=== PATIENT | male | born 1975 | race Caucasian/White ===

== ENCOUNTER 2025-08-06 13:33 | Outpatient (AMB) | payer MEDICARE, MEDICAID, SELFPAY ==
--- NOTE | 2025-08-06 13:37 | A.OFFVIS_ITS ---
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 The pain began approximately a year ago and has progressively worsened, significantly impacting his ability to walk and perform daily activities. The pain radiates from the lower back to the left buttock and is exacerbated by movement, standing, and walking. The patient also reports neuropathy, which he has been experiencing for 15 to 20 years, associated with his diabetes mellitus. The neuropathy causes numbness and a sensation angelic to being stabbed in the feet, particularly when attempting to sleep. He has tried various medications, including gabapentin and methadone, but these have not provided significant relief. The patient has a chronic foot wound, which has been under treatment with wound care specialists. The wound has delayed healing, necessitating regular visits to a wound care clinic and home visits by a nurse. The patient is unable to p articipate in physical therapy due to the wound, which has impacted his mobility and pain management options. The patient has a history of hypertension, with a recent episode of elevated blood pressure and pulse, which was managed in the hospital with Dilaudid. He is currently prescribed Tramadol for pain management, although he reports receiving a lower dose than prescribed. - Onset: Approximately one year ago - Quality: Radiating pain from lower back to left buttock - Exacerbating factors: Movement, standing, walking - Relieving factors: Sitting, leaning against a wall - Interference: Affects walking, standing, cooking, and bathroom activities - Affect: Pain significantly impacts daily activities and sleep, causing distress. - Analgesia: Currently using Tramadol, previously tried gabapentin and methadone without significant relief. - Adverse Effects: Tramadol at current dose reduces sharp pain but not pressure; gabapentin and methadone caused undesirable side effects. - Activities of Daily Living: Pain limits ability to walk, stand, cook, and perform other daily tasks. - Aberrant Drug Related Behaviors: None reported. 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 - Neurological: Reports neuropathy with numbness and stabbing sensation in feet. - Endocrine: Reports diabetes mellitus. - Cardiovascular: Reports hypertension, recent episode of elevated blood pressure. - Integumentary: Reports chronic foot wound. Physical Exam Exam Exam: General: awake, alert, oriented. Answers questions appropriately. Fully engaged in examination. Skin: warm, dry, intact. wounf right foot, dressing in place from wound care. HEENT: Normocephalic. Hearing intact. Cardiac: External chest normal in appearance. Respiratory: No cough, audible wheezing or stridor. Abdomen: without gross distension. MS: No obvious swelling or deformities. Able to transition from sit to stand unassisted. Ambulates with bilaterally normal heel strike and toe off Left SI: Thigh thrust, compression, Gaenslen tests positive. Tender to palpation over left PSIS. Neurological: Oriented to person, place, time and situation. Thought process intact. No gait abnormalities appreciated. Psychiatric: Appropriate mood and affect. Good judgment and insight. Vital Signs: Last Vital Signs Pulse 116 H 08/06/25 13:38 Resp 16 08/06/25 13:38 BP 184/92 H 08/06/25 13:38 Pulse Ox 97 08/06/25 13:38 Oxygen Delivery Method Room Air 08/06/25 13:38 BMI result Body Mass Index 30.7 Assessment & Plan Assessment & Plan (1) Sacroiliac joint dysfunction of left side: Code(s): M53.3 - Sacrococcygeal disorders, not elsewhere classified Category: Medical (2) Degenerative disc disease, lumbar: Code(s): M51.36 - Other intervertebral disc degeneration, lumbar region Category: Medical (3) Chronic pain syndrome: Code(s): G89.4 - Chronic pain syndrome Category: Medical Plan The plan for managing the patient's chronic lower back pain includes attempting to obtain an MRI to better understand the underlying cause, although insurance approval may be challenging due to the lack of prior physical therapy. Unable to attend PT d/t wound on right foot. The patient is advised to continue with Tramadol at the prescribed dose of 50 mg three times a day, predscribed by pcp. Once the foot wound is healed, the patient may be eligible for sacroiliac joint injections to alleviate pain, as well as potential use of Qutenza patches for neuropathy management. For the neuropathy, if Qutenza is ineffective, a spinal cord stimulator may be considered as a subsequent option. The patient is encouraged to continue wound care management and follow up with the ultrasound applications specialist to ensure healing progresses. Patient was informed and verbally consented to the use of an ambient scribe for clinic note documentation during this visit. Orders: Orders XR lumbar spine 4V min Today M51.36 - Other intervertebral disc degeneration, lumbar region MR lumbar spine wo con Today G89.4 - Chronic pain syndrome, M51.36 - Other intervertebral disc degeneration, lumbar region, M53.3 - Sacrococcygeal disorders, not elsewhere classified Patient Instructions: - Continue taking Tramadol as prescribed by pcp. - Follow up with ultrasound applications specialist regularly. - Schedule an MRI once insurance approval is obtained. - Consider sacroiliac joint injections and Qutenza patches after wound healing. - Monitor blood pressure and report any significant changes. Coding Level of Care Code New Pt Level 4 (05159) Complex EM visit Add On G2211 Diagnoses Sacroiliac joint dysfunction of left side M53.3 Degenerative disc disease, lumbar M51.36 Chronic pain syndrome G89.4
[2025-08-06 13:38] VITALS: BP 184/92; PULSE 116; RESP 16; O2SAT 97; BMI 30.7
--- OUTSIDE RECORDS SUMMARY | 2025-08-06 16:51 | XMS_ITS | Encounter Summary ---
Author Organization [facility] Address [address] [place] [address] Care Team Providers Care Rag Sorter Name Role Phone John Kumar MD Primary Care Provider [phone] Reason for Visit * Reason Onset Date Comments VNA 07/20/2025 Encounter Details Date Type Department Care Team ([facility] st Contact Info) Description 07/20/2025 Telephone Adult Medicine [facility] [address] [place], [place] [phone] Michael Kinney, CHILDREN'S LITERATURE PROFESSOR [address] [place], [place] Social History Tobacco Use Types Packs/Day Years Used Date Smoking Tobacco: Former Cigarettes 0 Q uit: 09/24/1996 Smokeless Tobacco: Never Alcohol Use Standard Drinks/Week Comments No 0 (1 standard drink = 0.6 oz pur e alcohol) Food Risk Answer Date Recorded Within the past 12 months we worried whether our food would run out before we got money to buy more. Never true 02/05/2025 Within the past 12 months th e food we bought just didn't last and we didn't have money to get more. Never true 02/05/2025 Interpersonal Safety Answer Date Record ed Physical Abuse Unrecognized value 02/10/2025 Verbal Abuse Unrecognized value 02/10/2025 Sex and Gender Information Value Date Recorded Sex Assigned at Not on file Legal Sex Male 6:54 AM EST Gender Identity Not on file Sexual Orientation Not on file documented as of this encounter Functional Status * Are you deaf or do you have serious difficulty hearing? Answer Date of Assessment Author No 06/10/2025 1:42 PM EDT Jane Duckworth RN * Are you blind or do you have serious difficulty seeing, even when wearing glasses? Answer Date of Assessment Author No 06/10/2025 1:42 PM EDT Jane Duckworth RN * Do you have serious difficulty walking or climbing stairs? Answer Date of Assessment Author No 06/10/2025 1:42 PM EDT Jane Duckworth RN * Do you have serious difficulty dressing or bathing? Answer Date of Assessment Author No 06/10/2025 1:42 PM EDT Jane Duckworth RN * Because of a physical, mental, or emotional condition, do you have serious difficulty doing errandsalone such as visiting the doctor? Answer Date of Assessment Author No 06/10/2025 1:42 PM EDT Jane Duckworth RN documented as of this encounter Mental Status * Because of a physical, mental, or emotional condition, do you have serious difficulty concentrating, remembering, or making decisions? (5 years old or older) Answer Entry Date Author No 06/10/2025 1:42 PM EDT Jane Duckworth RN documented in this encounter Progress Notes * Shirley Hall RN - 07/21/2025 11:24 AM EDT Call to [facility]NA Left message for ying to call triage * Shirley Hall RN - 07/20/2025 2:19 PM EDT Call to nurse Left message for ying to call triage Pt is post op foot ulceration . Last seen by dr camarena 07/15 has ortho visit tomorrow was seen by dejuan kinney 07/15 for neck pain, 2 week rx for tramadol sent has f/u 08/26 * Shalonda Preston - 07/20/2025 2:14 PM EDT VNA CALL Which [facility] office is calling? [facility] Full name of caller: [facility] office is calling. The patient's nurse Ying is asking for a callback , high priority The caller is Intake calling for Ying Is the caller at the patients home?: no, unsure if nurse is with the patient Reason for call: Wants to speak to Nohemi Kinney regarding medication Does caller need an urgent call back? yes Was CONTACT Telephone # obtained above?: yes, Fax #: documented in this encounter Plan of Treatment Upcoming Encounters Date Type Department Care Team (Late st Contact Info) Description 08/10/2025 10:30 AM EST Office Visit Orthopedic Surgery - [place] [id number] [phone] Jeremy Camarena, DPM [address] [phone] 08/26/2025 8:45 AM EST Office Visit Adult Medicine [address] [phone] Michael Kinney NP [address] [place], [place] documented as of this encounter Visit Diagnoses Not on filedocumented in this encounter Additional Health Concerns Infection Onset Date Last Indicated Resolved Time Human Metapneumovirus 02/09/2025 02/09/2025 documented as of this encounter Care Teams Rag Sorter Relationship Specialty Start Date End Date John Kumar MD [address] [place] [address] PCP - General Internal Medicine 09/27/24 documented as of this encounter
--- OUTSIDE RECORDS SUMMARY | 2025-08-06 16:51 | XMS_ITS | Encounter Summary ---
Author Organization [facility] Address [address] [place] [address] Care Team Providers Care System Specialist Name Role Phone John Kumar MD Primary Care Provider [phone] Reason for Visit * Reason Onset Date Comments faxed vna order 07/13/2025 [facility] 1592 Encounter Details Date Type Department Care Team ([facility] st Contact Info) Description 07/13/2025 Telephone Adult Medicine [facility] [address] [place] [phone] John Kumar MD [address] [place] [address] Social History Tobacco Use Types Packs/Day Years [...] documented in this encounter Progress Notes * Nguyen Vasquez - 07/13/2025 1:56 PM EDT Faxed order received from [facility] 1597 please sign and fax to [phone]. documented in this encounter Plan of Treatment Upcoming Encounters Date Type Department Care Team (Late st Contact Info) Description 08/10/2025 10:30 AM EST Office Visit Orthopedic Surgery - [place] [address] [phone] Jeremy Camarena, DPAlyssa 175 [facility] [address] [place] [address] 08/26/2025 8:45 AM EST Office Visit [address] [phone] Michael Kinney NP [address] [place], [place] documented as of this encounter Visit Diagnoses Not on filedocumented in this encounter Additional Health Concerns Infection Onset Date Last Indicated Resolved Time Human Metapneumovirus 02/09/2025 02/09/2025 documented as of this encounter Care Teams System Specialist Relationship Specialty Start Date End Date John Kumar MD [address] [place], [place] PCP - General Internal Medicine 09/27/24 documented as of this encounter
--- OUTSIDE RECORDS SUMMARY | 2025-08-06 16:51 | XMS_ITS | Clinical Summary ---
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 200 each 3 11/03/19 25 026 Active insulin glargine (LANTUS SoloStar) 100 unit/mL (3 mL) injection pen Inject 8 Units under the skin at bedtime. 5 mL 1 02/06/20 25 Active amLODIPine (NORVASC) 10 mg tablet Take 1 tablet (10 mg total) by mouth 1 (one) time each day. 30 each 5 02/19/20 25 025 Active ibuprofen (ADVIL,MOTRIN) 600 mg tablet Take 1 tablet (600 mg total) by mouth 3 (three) times a day if needed for mild pain (pain). 60 tablet 1 04/01/20 25 Active diclofenac (Voltaren Arthritis Pain) 1 % topical gel Apply 2 g topically 4 (four) times a day. 150 g 1 05/26/20 25 Active lisinopril (PRINIVIL,ZESTR IL) 40 mg tablet Take 1 tablet (40 mg total) by mouth 1 (one) time each day. 30 each 5 06/15/20 25 026 Active metoprolol succinate (TOPROL-XL) 25 mg 24 hr tablet Take 2 tablets (50 mg total) by mouth 1 (one) time each day. 180 tablet 1 07/15/20 25 Active traMADoL (ULTRAM) 50 mg tabletIndicatio ns:Acute left-sided low back pain without sciatica,Uncont rolled hypertension Take 0.5 tablets (25 mg total) by mouth 3 (three) times a day if needed for moderate pain. Max Daily Amount: 75 mg 45 tablet 07/22/20 25 Active metoprolol succinate (TOPROL-XL) 25 mg 24 hr tablet TAKE ONE TABLET BY MOUTH EVERY DAY 30 tablet 5 03/12/20 25 025 Discontinued(Re order) metoprolol succinate (TOPROL-XL) 25 mg 24 hr tablet Take 2 tablets (50 mg total) by mouth 1 (one) time each day. 30 tablet 5 07/15/20 25 025 Discontinued traMADoL (ULTRAM) 50 mg tabletIndicatio ns:Acute left-sided low back pain without sciatica,Uncont rolled hypertension Take 1 tablet (50 mg total) by mouth 3 (three) times a day if needed for moderate pain. Max Daily Amount: 150 mg 45 tablet 07/15/20 25 025 Discontinued(Re order) Active Problems Problem Noted Date Diagnosed Date Diabetic foot infection ([facility] V24, [facility] V2 8) 01/28/2025 Acute osteomyelitis of right foot ([facility] V24, [facility] V28) 09/27/2024 Assessment & Plan (02/18/2025 11:17 AM EDT): Orders: XR Chest 2 Views; Future Acute osteomyelitis ([facility] V24, [facility] V28) 0 10/18/2018 Overview (10/07/2024): 10/08/18 Right MPJ Foot biopsy- acute & chronic osteo Assessment & Plan (10/10/2024 10:23 PM EST): Orders: Basic metabolic panel; Future DM (diabetes mellitus), type 2 with renal complications ([facility] V24, [facility] V28) 08/12/2018 Assessment & Plan (02/18/2025 11:17 AM EDT): Orders: POC glucose manually resulted Microalbuminuria 08/12/2018 Chronic osteomyelitis ([facility] V24, [facility] V28) 08/09/2018 Overview (10/07/2024): 10/08/18 Right Lateral Foot biopsy Diabetic foot ulcers ([facility] V24, [facility] V28) 08/09/2018 Overview (10/07/2024): Right foot, 09/26/18 s/p debridement: R Medial Foot Wound: 1.3 x1.5x 0.2 cm's; 09/26/18 s/p debridement R Lateral Foot Wound 0.9 x 0.5 x 0.4 cm's Polyneuropathy 08/09/2018 Essential hypertension 06/22/2017 Assessment & Plan (02/18/2025 11:17 AM EDT): Assessment & Plan (12/03/2024 5:04 PM EDT): His blood pressure is much elevated today. He is in a fair amount of pain from hitting his lower back on the counter during a fall a little over a week ago. This is likely contributory given previous normal readings. That being said, pt was asked to follow up in 3 weeks for recheck and potential medication adjustment. Orders: Microalbumin creatinine urine ratio; Future Hemoglobin A1c; Future Assessment & Plan (10/10/2024 10:23 PM EST): DM (diabetes mellitus), type 2 with neurological complications ([facility] V24, [facility] V28) 05/18/2017 Assessment & Plan (12/03/2024 5:04 PM EDT): Based on his fasting blood sugars there has been some improvement in his blood sugar control. Most of his fasting blood sugars are in the low 100s, sometimes will have a fasting blood sugar in the 140s but this is seldom. He is tolerating 5 units of Lantus well, which is actually his preferred treatment. He was not tolerating the previously prescribed glipizide and metformin. He has upcoming consultation with endocrine I appreciate their input. A1c and urine microalbumin has been ordered. Orders: Microalbumin creatinine urine ratio; Future Hemoglobin A1c; Future Assessment & Plan (10/10/2024 10:23 PM EST): Orders: Ambulatory referral to Endocrinology; Future DM (diabetes mellitus), type 2 with peripheral vascular complications ([facility] V24, [facility] V28) 05/18/2017 Resolved Problems Problem Noted Date Diagnosed Date Resolved Date Pneumonia of right lung due to infectious organism, unspecified part of lung 02/09/202502/13 Encounters Date Type Department Care Team Description 08/03/2025 Telephone Adult Medicine [address] [phone] John Kumar MD 07/30/2025 3:15 PM EST Office Visit Orthopedic [address] [phone] Jeremy Camarena DPM Controlled type 2 diabetes mellitus with diabetic polyneuropathy, without long-term current use of insulin ([facility] V24, [facility] V28) (Primary Dx); Charcot's joint of foot, right; Ulcer of right heel, with fat layer exposed ([facility] V24, [facility] V28) 07/21/2025 10:30 AM EDT Office Visit Orthopedic [address] [phone] Garth Nelson MD Finger pain, left (Primary Dx) 07/20/2025 Telephone Adult Medicine [address] [phone] Michael Kinney NP 07/16/2025 9:45 AM EDT Office Visit Orthopedic [address] [phone] Jeremy Camarena DPM Controlled type 2 diabetes mellitus with diabetic polyneuropathy, without long-term current use of insulin (CMS/HCC V24, CMS/HCC V28) (Primary Dx); Charcot's joint of foot, right; Ulcer of right heel, with fat layer exposed ([facility] V24, CMS/HCC V28) 07/15/2025 8:45 AM EDT Office Visit Adult [address] [phone] Michael Kinney, JENNY Acute left-sided low back pain without sciatica (Primary Dx); Uncontrolled hypertension 07/15/2025 Telephone Adult Medicine [address] [phone] John Kumar MD 07/13/[address] [phone] John Kumar MD 07/06/2025 9:45 AM EDT Office Visit Orthopedic [place] [phone] [phone] Jeremy Camarena, DPM Controlled type 2 diabetes mellitus with diabetic polyneuropathy, without long-term current use of insulin ([facility] V24, [facility] V28) (Primary Dx); Charcot's joint of foot, right; Ulcer of right heel, with fat layer exposed ([facility] V24, [facility] V28) 07/02/2025 Telephone Adult [address] [phone] John Kumar MD 06/30/2025 9:00 AM EDT Office Visit Orthopedic [facility] [address] [phone] Oscar Vences PA Other sprain of left ring finger, initial encounter (Primary Dx) 06/30/2025 Telephone Orthopedic [facility] [address] [phone] Angélica Solares 06/24/2025 2:30 PM EDT Office Visit Orthopedic [facility] [address] [phone] Jeremy Camarena DPM Controlled type 2 diabetes mellitus with diabetic polyneuropathy, without long-term current use of insulin ([facility] V24, [facility] V28) (Primary Dx); Charcot's joint of foot, right; Ulcer of right heel, with fat layer exposed ([facility] V24, [facility] V28) 06/15/2025 11:00 AM EDT Office Visit Adult Medicine [address] [phone] Michael Kinney NP Neck pain (Primary Dx); Acute left-sided low back pain without sciatica; Uncontrolled hypertension; DM (diabetes mellitus), type 2 with neurological complications ([facility] V24, [facility] V28); Diabetic ulcer of right midfoot associated with type 2 diabetes mellitus, unspecified ulcer stage ([facility] V24, [facility] V28); Encounter for examination following treatment at hospital; Encounter for screening for malignant neoplasm of prostate 06/10/2025 1:26 PM EDT - 06/10/2025 9:35 PM EDT Emergency [facility] Emergency [address] [place] [phone] Gabino Blevins MD Neck pain on left side (Primary Dx); Upper back pain Discharge Disposition: Home or Self Care 06/10/2025 Telephone Adult Medicine [address] [phone] John Kumar MD 06/02/2025 2:49 PM EDT - 06/02/2025 11:59 PM EDT Hospital Encounter [facility] MRI [address] [place] [phone] Other sprain of left ring finger, initial encounter Discharge Disposition: Home or Self Care 06/01/2025 10:45 AM EDT Office Visit Orthopedic Surgery [facility] [address] [phone] Jeremy Camarena DPM Controlled type 2 diabetes mellitus with diabetic polyneuropathy, without long-term current use of insulin ([facility] V24, [facility] V28) (Primary Dx); Charcot's joint of foot, right; Cellulitis of right ankle; Ulcer of right heel, with fat layer exposed ([facility] V24, [facility] V28) 05/26/2025 8:00 AM EDT Consult Orthopedic Surgery [place] [phone] [phone] Oscar Vences PA Other sprain of left ring finger, initial encounter (Primary Dx); Acquired trigger finger of left ring finger 05/14/2025 9:15 AM EDT Office Visit Orthopedic Surgery [facility] [address] [phone] Jeremy Camarena, OBI Controlled type 2 diabetes mellitus with diabetic polyneuropathy, without long-term current use of insulin ([facility] V24, [facility] V28) (Primary Dx); Charcot's joint of foot, right; Neuropathy; Ulcer of right heel, with fat layer exposed ([facility] V24, [facility] V28) from Last 3 Months Immunizations Immunization Administration Dates Next Due Influenza Quadravalent, MDCK , 0.5ml, preservative free (Flucelvax) 6mo and older 07/07/2022,07/07/2022 [employer] SARS-CoV-2 COVID -19, vector-nr, rS-Ad26, preservative free 02/01/2021,02/01/2021 Surgical History Surgery Date Site/Laterality Comments CHOLECYSTECTOMY 04/17/2017 PROCEDURE: HISTORICAL CHOLECYSTECTOMY HERNIA REPAIR 04/17/2017 PROCEDURE: HISTORICAL HERNIA REPAIR/UMB OTHER SURGICAL HISTORY 04/14/2017 Right PROCEDURE: FL DEBRIDEMENT BONE 1ST 20 SQ CM/< Medical History Medical History Date Comments History of osteomyelitis 08/09/2018 DX:Hist ory of osteomyelitis; COMMENT: 04/09 medial side R foot, diabetic wet gangrene, tissue loss extensive from prox porttion R great toe medially down to ankle,plantar fascia,several tendons & muscles were necotic,debridement 13 x 7 x 2 cms; 6 weeks IV antibiotics DM (diabetes mellitus), type 2 with peripheral vascular complications ([facility] V24, [facility] V28) 05/18/2017 DX:DM (diabetes mellitus), type 2 with peripheral vascular complications (HCC) DM (diabetes mellitus), type 2 with neurological complications ([facility] V24, [facility] V28) 05/18/2017 DX:DM (diabetes mellitus), t ype 2 with neurological complications (HCC) Polyneuropathy 08/09/2018 DX:Polyneuropath y Essential hypertension 06/22/2017 DX:Essent ial hypertension History of DVT (deep vein thrombosis) 05/18/2017 DX:History of DVT (deep vein thrombosis); COMMENT: 2016 Left leg Microalbuminuria 08/12/2018 DX:Microalbumin uria DM (diabetes mellitus), type 2 with renal complications ([facility] V24, [facility] V28) 08/12/2018 DX:DM (diabetes mellitus), t ype 2 with renal complications (HCC) Acute osteomyelitis ([facility] V24, [facility] V28) 10/18/2018 DX:Acute osteomyelitis (HCC) ; COMMENT: 10/08/18 Right MPJ Foot biopsy- acute & chronic osteo Chronic osteomyelitis ([facility] V24, [facility] V28) 08/09/2018 DX:Chronic osteomyelitis (HC C); COMMENT: 10/08/18 Right Lateral Foot biopsy Diabetic foot ulcers ([facility] V24, [facility] V28) 08/09/2018 DX:Diabetic foot ulcers (HCC ); COMMENT: Right foot, 09/26/18 s/p debridement: R Medial Foot Wound: 1.3 x1.5x 0.2 cm's; 09/26/18 s/p debridement R Lateral Foot Wound 0.9 x 0.5 x 0.4 cm's Family History Medical History Relation Name Comments Diabetes Father Relation Name Status Comments Father Social History Tobacco Use Types Packs/Day Years [...] on file Sexual Orientation Not on file Obstetrics History Last Filed Vital Signs Vital Sign Reading Time Taken Comments Blood Pressure 168/90 07/15/2025 9:22 AM EDT Pulse 119 07/15/2025 9:00 AM EDT 5 minute average Temperature 36.2 C (97.2 F) 07/15/2025 8:50 AM EDT Respiratory Rate 16 06/15/2025 11:1 2 AM EDT Oxygen Saturation 98% 07/15/2025 8:5 0 AM EDT Inhaled Oxygen Concentration - - Weight 105 kg (231 lb) 07/15/2025 8:50 AM EDT Height 180.3 cm (5' 11 ) 07/15/2025 8:5 0 AM EDT Body Mass Index 32.22 07/15/2025 8:50 AM EDT Plan of Treatment Upcoming Encounters Date Type Department Care Team (Late st Contact Info) Description 08/10/2025 10:30 AM EST Office Visit Orthopedic Surgery [place] [address] [phone] Jeremy Camarena, DPAlyssa [address] [address] 08/26/2025 8:45 AM EST Office Visit Adult Medicine [facility] [address] [place], [place] [phone] Michael Kinney NP [address], [place] Health Maintenance Due Date Last Done Comments Diabetes: Annual Retina Eye Exam 1983 DTaP,Tdap,and Td Vaccines (1 - Tdap) 01/12/1992 Hepatitis B Vaccines (1 of 3 - 19+ 3-dose series) 01/12/1992 Pneumococcal Vaccine: 50+ Years (1 of 2 - PCV) 01/12/1992 HIV Screening 09/02/2022 Hepatitis C Screening 09/02/2022 Medicare Annual Wellness Visit 09/02/2022 RSV Immunization Adult Patients (1 - Risk 50-74 years 1-dose series) 2023 Zoster Vaccines (1 of 2) 2023 Diabetes: Annual Urine Albumin-Creatinine Ratio (uACR) 05/30/2024 05/30/2023 Depression Screening 09/24/2024 COVID-19 Vaccine ( season) 2025 07/21/2021, 02/01/2021, 02/01/2021 Influenza Vaccine (#1) 2025 07/07/2022, 2021 Diabetes: Blood Sugar Control Test (HGBA1C) 08/04/2025 02/01/2025, 09/27/2024, 05/28/2024 Diabetes: Annual Foot Exam 01/28/202601/28, 09/27/2024, 05/28/2024 Colorectal Cancer Screening: Stool Based Tests (FOBT/FIT) 02/03/2026 02/03/2025 Social Influencers of Health Screening 02/05/2026 02/05/2025 Diabetes: Annual GFR (Glomerular Filtration Rate) 06/10/2026 06/10/2025, 02/13/2025, 02/12/2025, Additional history exists Hypertension/CHF/CAD Annual BMP Blood Test 06/10/2026 06/10/2025, 02/13/2025, 02/12/2025, Additional history exists Cholesterol Screening (Lipid Panel) 05/28/2029 05/28/2024, 05/28/2024 HIB Vaccines Aged Out No longer eligi ble based on patient's age to complete this topic HPV Vaccines Aged Out No longer eligi ble based on patient's age to complete this topic Hepatitis A Vaccines Aged Out No long er eligible based on patient's age to complete this topic IPV Vaccines Aged Out No longer eligi ble based on patient's age to complete this topic MMR Vaccines Aged Out No longer eligi ble based on patient's age to complete this topic Meningococcal ACWY Vaccine Aged Out N o longer eligible based on patient's age to complete this topic Meningococcal B Vaccine Aged Out No l onger eligible based on patient's age to complete this topic RSV Immunization Patients Under 20 months Aged Out No longer eligible based on patient's age to complete this topic Varicella Vaccines Aged Out No longer eligible based on patient's age to complete this topic Procedures Procedure Name Priority Date/Time Associated Diagnosis Comments XR FINGERS 2+ VIEWS LEFT Routine 07/21/2025 10:59 AM EDT Finger pain, left ECG ANNOTATED 06/11/2025 CT ANGIO CHEST WO AND/OR W CONTRAST STAT 06/10/2025 7:13 PM EDT Neck pain on left side ECG 12-LEAD STAT 06/10/2025 2:12 PM EDT D-DIMER STAT 06/10/2025 1:48 PM EDT TROPONIN I HIGH SENSITIVITY STAT 06/10/2025 1:47 PM EDT CBC WITH AUTO DIFFERENTIAL STAT 06/10/2025 1:47 PM EDT MAGNESIUM STAT 06/10/2025 1:47 PM EDT COMPREHENSIVE METABOLIC PANEL STAT 06/10/2025 1:47 PM EDT CBC AND DIFFERENTIAL STAT 06/10/2025 1:47 PM EDT MR FINGER WO CONTRAST LEFT Routine 06/02/2025 3:38 PM EDT Other sprain of left ring finger, initial encounter FL INJECTION SINGLE TENDON SHEATH OR LIGAMENT APONEUROSIS Routine 05/26/2025 8:00 AM EDT Acquired trigger finger of left ring finger OCCULT BLOOD STOOL, GUAIAC Routine 02/03/2025 4:51 PM EDT HEMOGLOBIN A1C Add-On 02/01/2025 6:21 AM EDT LIPID PANEL Routine 05/28/2024 DIABETES FOOT EXAM Routine 05/28/2024 URINE ALBUMIN CREATININE RATIO Routine 05/30/2023 from Last 3 Months or Most Recently Relevant to Health Maintenance Results * XR Fingers 2+ Views Left (07/21/2025 10:59 AM EDT) Anatomical Region Laterality Modality Upper Extremities, Fingers Left Compu osiris Radiography Narrative 07/21/2025 8:14 PM EDT Three-view x-rays of the left ring finger show no evidence of acute fracture or dislocation. There are degenerative changes at the PIP joint with narrowing of the joint space. Mild soft tissue swelling surrounding the PIP joint. No significant interval changes from radiographs obtained 04/01/2025 Impression: Degenerative changes at the PIP joint with soft tissue swelling. Garth Nelson MD IMG XR PROCEDURES Final Result * ECG-Annotated (06/11/2025) Provider Onbase ECG ORDERABLES Final Result * CT Angio Chest wo and/or w Contrast (06/10/2025 7:13 PM EDT) Anatomical Region Laterality Modality Body Computed Tomogra phy 06/10/2025 7:38 PM EDT Impressions 06/10/2025 7:38 PM EDT 1. No pulmonary embolus. This document has been electronically signed by: Chance Cee MD on 06/10/2025 19:38:00 Narrative 06/10/2025 7:38 PM EDT INDICATION: PE suspected, low/intermediate prob, positive D-dimer CT angiography chest with contrast. 3D Postprocessing. Comparison: CT - CT ANGIO CHEST WO AND OR W CONTRAST - 01/28/2025 02:49 AM EDT Findings: The heart size is normal. RV/LV ratio is normal. Unremarkable thoracic aorta and great vessels. No aneurysm. No acute pulmonary embolus. The visualized thyroid and mediastinum are unremarkable. The lungs are clear. The visualized upper abdomen is unremarkable. The bones are intact. Procedure Note Chance Cee MD - 06/10/2025 INDICATION: PE suspected, low/intermediate prob, positive D-dimer CT angiography chest with contrast. 3D Postprocessing. Comparison: CT - CT ANGIO CHEST WO AND OR W CONTRAST - 01/28/2025 02:49AM EDT Findings: The heart size is normal. RV/LV ratio is normal. Unremarkable thoracic aorta and great vessels. No aneurysm. No acute pulmonary embolus. The visualized thyroid and mediastinum are unremarkable. The lungs are clear. The visualized upper abdomen is unremarkable. The bones are intact. IMPRESSION: 1. No pulmonary embolus. This document has been electronically signed by: Chance Cee MD on 06/10/2025 19:38:00 Gabino Blevins MD IMG CT PROCEDURES Final Result * ECG 12 lead (06/10/2025 2:12 PM EDT) Ventricular Rate ECG 115 BPM GEMUSE Atrial Rate 115 BPM GEMUSE P-R Interval 140 ms GEMUSE QRS Duration 80 ms GEMUSE Q-T Interval 334 ms GEMUSE QTc 462 ms GEMUSE P Wave [place] 38 degrees GEMUSE R [place] 19 degrees GEMUSE T [place] 39 degrees GEMUSE ECG Interpretation Sinus tachycardia Otherwise normal ECG When compared with ECG of 09-FEB-2025 14:49, No significant change was found Confirmed by MD JAQUAN, MIGUEL ([id number]) on 06/10/2025 5:35:28 PM GEMUSE 06/10/2025 2:12 PM EDT 06/10/2025 5:35 PM EDT Gabino Blevins MD ECG ORDERABLES Final Re sult GEMUSE * (ABNORMAL) D-dimer, quantitative (06/10/2025 1:48 PM EDT) D-Dimer, Quant (D-DU) 397(H) <=230 ng/mL DDU LAB COAGULATION METHOD 06/10/2025 2:55 PM EDT [facility] Blood Venous blood specimen / Unknown Venipuncture / Unknown 06/10/2025 1:48 PM EDT 06/10/2025 2:38 PM EDT [facility] - 06/10/2025 2:55 PM EDT D-Dimer <230 ng/mL (D-Dimer units) is the threshold for exclusion of DVT/PE. D-Dimer may be elevated in: Critically ill, severely infected, trauma patients, DIC, acute CVA, acute OH, unstable angina, AF, old age, , and smoking. D-Dimer may be decreased with: Initiation of heparin therapy and oral anticoagulants. us Gabino Blevins MD LAB BLOOD ORDERABLES Fin al Result Performing Organization Address [facility] de Phone Number [facility] [address] [place] [address], [place] [phone] * Troponin I high sensitivity (06/10/2025 1:47 PM EDT) [facility] High Sensitivity Troponin I 12 <=79 ng/L LAB CHEMISTRY METHOD 06/10/2025 3:10 PM EDT [facility] Blood Venous blood specimen / Unknown Venipuncture / Unknown 06/10/2025 1:47 PM EDT 06/10/2025 2:38 PM EDT [facility] - 06/10/2025 3:10 PM EDT High levels of biotin in samples may falsely decrease hsTroponin values. Use caution when interpreting hsTroponin results in patients taking biotin who exhibit renal impairment (eGFR <60) or in patients taking more than 20 mg/day of biotin. us Gabino Blevins MD LAB BLOOD ORDERABLES Fin al Result Performing Organization Address [facility] de Phone Number [facility] [address] [place] [address], [place] [phone] * (ABNORMAL) CBC auto differential (06/10/2025 1:47 PM EDT) [facility] WBC 6.8 4.8 - 10.8 K/mcL LAB HEMETOLOGY METHOD 06/10/2025 3:25 PM EDT [facility] RBC 3.70(L) 4.50 - 5.50 M/mcL LAB HEMETOLOGY METHOD 06/10/2025 3:25 PM EDT [facility] Hemoglobin 12.9(L) 13.5 - 17.5 g/dL LAB HEMETOLOGY METHOD 06/10/2025 3:25 PM EDT [facility] Hematocrit 34.5(L) 42.0 - 54.0 % LAB HEMETOLOGY METHOD 06/10/2025 3:25 PM EDT [facility] MCV 92.5 79.0 - 98.0 FL LAB HEMETOLOGY METHOD 06/10/2025 3:25 PM EDT [facility] MCH 34.6(H) 27.0 - 32.0 pcg LAB HEMETOLOGY METHOD 06/10/2025 3:25 PM EDT [facility] MCHC 37.4(H) 32.0 - 37.0 g/dL LAB HEMETOLOGY METHOD 06/10/2025 3:25 PM EDT [facility] RDW 14.4 11.0 - 15.0 % LAB HEMETOLOGY METHOD 06/10/2025 3:25 PM EDT [facility] Platelets 181 130 - 400 K/mcL LAB HEMETOLOGY METHOD 06/10/2025 3:25 PM EDT [facility] MPV 9.3 7.0 - 11.0 FL LAB HEMETOLOGY METHOD 06/10/2025 3:25 PM EDT [facility] NRBC 0.0 <1.0 % LAB HEMETOLOGY METHOD 06/10/2025 3:25 PM EDT [facility] NRBC Absolute 0.00 <0.10 K/mcL LAB HEMETOLOGY METHOD 06/10/2025 3:25 PM EDT [facility] Neutrophils Relative 80.5 % LAB HEMETOLOGY METHOD 06/10/2025 3:25 PM EDT [facility] Lymphocytes Relative 11.1 % LAB HEMETOLOGY METHOD 06/10/2025 3:25 PM EDT [facility] Monocytes Relative 7.1 % LAB HEMETOLOGY METHOD 06/10/2025 3:25 PM EDT [facility] Eosinophils Relative 0.3 % LAB HEMETOLOGY METHOD 06/10/2025 3:25 PM EDT [facility] Basophils Relative 0.6 % LAB HEMETOLOGY METHOD 06/10/2025 3:25 PM EDT [facility] Immature Granulocytes Relative 0.4 % LAB HEMETOLOGY METHOD 06/10/2025 3:25 PM EDT [facility] Neutrophils Absolute 5.45 1.50 - 7.00 K/mcL LAB HEMETOLOGY METHOD 06/10/2025 3:25 PM EDT [facility] Lymphocytes Absolute 0.75(L) 1.00 - 5.00 K/mcL LAB HEMETOLOGY METHOD 06/10/2025 3:25 PM EDT [facility] Monocytes Absolute 0.48 0.20 - 1.00 K/mcL LAB HEMETOLOGY METHOD 06/10/2025 3:25 PM EDT [facility] Eosinophils Absolute 0.02 0.00 - 0.50 K/mcL LAB HEMETOLOGY METHOD 06/10/2025 3:25 PM EDT [facility] Basophils Absolute 0.04 0.00 - 0.20 K/mcL LAB HEMETOLOGY METHOD 06/10/2025 3:25 PM EDT [facility] Immature Granulocytes Absolute 0.03 0.00 - 0.03 K/mcL LAB HEMETOLOGY METHOD 06/10/2025 3:25 PM EDT [facility] Blood Venous blood specimen / Unknown Venipuncture / Unknown 06/10/2025 1:47 PM EDT 06/10/2025 2:38 PM EDT us Gabino Blevins MD LAB BLOOD ORDERABLES Fin al Result Performing Organization Address [facility]/ZIP Co de Phone Number [facility] [address] [place] [address], [place] [phone] * Magnesium (06/10/2025 1:47 PM EDT) [facility] Magnesium 2.1 1.9 - 2.6 mg/dL LAB CHEMISTRY METHOD 06/10/2025 3:05 PM EDT [facility] Blood Venous blood specimen / Unknown Venipuncture / Unknown 06/10/2025 1:47 PM EDT 06/10/2025 2:38 PM EDT us Gabino Blevins MD LAB BLOOD ORDERABLES Fin al Result Performing Organization Address [facility]/ZIP Co de Phone Number [facility] [address] [place] [address], [place] [phone] * (ABNORMAL) Comprehensive metabolic panel (06/10/2025 1:47 PM EDT) [facility] Sodium 137 133 - 145 mmol/L LAB CHEMISTRY METHOD 06/10/2025 3:42 PM EDT [facility] Potassium 4.7 3.5 - 5.5 mmol/L LAB CHEMISTRY METHOD 06/10/2025 3:42 PM EDT [facility] Chloride 100 96 - 110 mmol/L LAB CHEMISTRY METHOD 06/10/2025 3:42 PM EDT [facility] CO2 25 21 - 32 mmol/L LAB CHEMISTRY METHOD 06/10/2025 3:42 PM EDT [facility] Anion Gap 12(H) 3 - 11 LAB CHEMISTRY METHOD 06/10/2025 3:42 PM [facility] Glucose 164(H) 70 - 100 mg/dL LAB CHEMISTRY METHOD 06/10/2025 3:42 PM [facility] BUN 29(H) 5 - 25 mg/dL LAB CHEMISTRY METHOD 06/10/2025 3:42 PM [facility] Creatinine 1.19 0.70 - 1.30 mg/dL LAB CHEMISTRY METHOD 06/10/2025 3:42 PM [facility] eGFR 73 >=60 mL/min/1. 73m2 LAB CHEMISTRY METHOD 06/10/2025 3:42 PM [facility] Comment:Calculation based on the Chronic Kidney Disease Epidemiology Collaboration (CKD-EPI) equation refit without adjustment for race. BUN/Creatinine Ratio 24.4 LAB CHEMISTRY METHOD 06/10/2025 3:42 PM [facility] Calcium 9.1 8.5 - 10.5 mg/dL LAB CHEMISTRY METHOD 06/10/2025 3:42 PM [facility] AST (SGOT) 65(H) 10 - 42 unit/L LAB CHEMISTRY METHOD 06/10/2025 3:42 PM [facility] Comment:Results verified by repeat testing ALT (SGPT) 81(H) 10 - 60 unit/L LAB CHEMISTRY METHOD 06/10/2025 3:42 PM [facility] Comment:Results verified by repeat testing Alkaline Phosphatase 76 42 - 121 unit/L LAB CHEMISTRY METHOD 06/10/2025 3:42 PM [facility] Total Protein 7.3 6.0 - 8.0 g/dL LAB CHEMISTRY METHOD 06/10/2025 3:42 PM [facility] Albumin 3.4 3.2 - 5.0 g/dL LAB CHEMISTRY METHOD 06/10/2025 3:42 PM [facility] Total Bilirubin 3.0(H) 0.0 - 1.4 mg/dL LAB CHEMISTRY METHOD 06/10/2025 3:42 PM EDT [facility] Blood Venous blood specimen / Unknown Venipuncture / Unknown 06/10/2025 1:47 PM EDT 06/10/2025 2:38 PM EDT us Gabino Blevins MD LAB BLOOD ORDERABLES Fin al Result [facility] [address] [place] [address], [place] [phone] * MR Finger wo Contrast Left (06/02/2025 3:38 PM EDT) Anatomical Region Laterality Modality Upper Extremities, Hand Left Magnetic Resonance 06/03/2025 3:28 AM EDT Impressions 06/03/2025 11:26 AM EDT Abnormal bone marrow signal involving the base of the middle phalanx of the left middle finger with overlying bone marrow edema which extends to the proximal phalanx with surrounding subcutaneous soft tissue edema and left fourth PIP joint fluid. Findings are nonspecific and may represent postinflammatory or postinfectious etiology. Underlying septic arthritis/osteomyelitis is not excluded.. -------- FINAL REPORT -------- Dictated By: Joyce Molina Dictated Date: 06/03/2025 03:28 ET Assigned Physician: Joyce Molina Reviewed and Electronically Signed By: Joyce Molina Signed Date: 06/03/2025 11:26 ET Workstation ID: [id number] Transcribed By: Self Edit Transcribed Date: 06/03/2025 03:34 ET Narrative 06/03/2025 11:26 AM EDT INDICATION: left ring finger persistent pain and stiffness PIP joint COMPARISON: None TECHNIQUE: Multiplanar, multisequence MRI was performed of the left ring finger without intravenous contrast administration. FINDINGS: Focal area of T1 hypointense signal (series 6, image 11) with cortical irregularity involving the base of the middle phalanx of the middle finger (series 3, image 11) with corresponding hyperintense signal on T2 fat-sat. There is subjacent bone marrow edema of the left middle finger proximal phalanx (series 7, image 11). There is an associated joint effusion at this level with overlying subcutaneous soft tissue swelling. No overlying ulcer is identified. There are increased tubular T2 fat-sat hyperintense foci within the subcutaneous soft tissues of the left hand which may represent pacinian corpuscle hyperplasia. No acute fracture or dislocation. Cystic change along the third metacarpal head. Procedure Note Joyce Molina MD - 06/03/2025 INDICATION: left ring finger persistent pain and stiffness PIP joint COMPARISON: None TECHNIQUE: Multiplanar, multisequence MRI was performed of the left ringfinger without intravenous contrast administration. FINDINGS: Focal area of T1 hypointense signal (series 6, image 11) with corticalirregularity involving the base of the middle phalanx of the middle finger(series 3, image 11) with corresponding hyperintense signal on T2 fat-sat.There is subjacent bone marrow edema of the left middle finger proximalphalanx (series 7, image 11). There is an associated joint effusion atthis level with overlying subcutaneous soft tissue swelling. No overlying ulcer is identified. There are increased tubular T2 fat-sat hyperintense foci within thesubcutaneous soft tissues of the left hand which may represent paciniancorpuscle hyperplasia. No acute fracture or dislocation. Cystic change along the third metacarpal head. IMPRESSION: Abnormal bone marrow signal involving the base of the middle phalanx ofthe left middle finger with overlying bone marrow edema which extends tothe proximal phalanx with surrounding subcutaneous soft tissue edema andleft fourth PIP joint fluid. Findings are nonspecific and may representpostinflammatory or postinfectious etiology. Underlying septicarthritis/osteomyelitis is not excluded.. -------- FINAL REPORT -------- Dictated By: Joyce Molina Dictated Date: 06/03/2025 03:28 ET Assigned Physician: Joyce Molina Reviewed and Electronically Signed By: Joyce Molina Signed Date: 06/03/2025 11:26 ET Workstation ID: [id number] Transcribed By: Self Edit Transcribed Date: 06/03/2025 03:34 ET Oscar MORIN IMG MRI PROCEDURES Final Result * FL INJECTION SINGLE TENDON SHEATH OR LIGAMENT APONEUROSIS (05/26/2025 8:00 AM EDT) Narrative Oscar Vences PA - 05/26/2025 8:00 AM EDT MIKEL Calvillo 05/27/2025 8:21 AM Hand / UE Inj/Asp: L ring A1 for trigger finger Indications: pain Details: 27 G needle, volar approach Medications: 40 mg triamcinolone acetonide 40 mg/mL Outcome: tolerated well, no immediate complications Site was prepped in standard fashion using alcohol swab, sterile technique was used to perform the injection, the patient tolerated the procedure well and a band-aid dressing was applied Informed Consent: Laterality: Left Relevant images/test results available and reviewed: yes Health status cleared: Yes Procedure/treatment, purpose, treatment alternatives, risks/potential complications and benefits explained: yes Risk/complications/benefits details: Risk/complications/benefits details: Risks and benefits of corticosteroid injection were discussed, including risk of pain, bleeding, infection, tissue attenuation, tendon rupture, changes in skin color, and injury to surrounding structures such as arteries, veins and nerves. We also discussed the patient may develop worsening pain for a few days before having improvement in their symptoms. Patient questions answered: yes Patient agrees, verbalizes understanding, and wants to proceed: yes Consent given by: Patient Informed consent discussion completed by Physician/GISSELL with patient: Verbal Pre-procedure timeout performed: yes Oscar MORIN IN CLINIC/BEDSIDE ORDERABLES Fi nal Result * Occult blood stool, guaiac (02/03/2025 4:51 PM EDT) Occult Blood, Stool #1 Negative Negative 02/03/2025 5:56 PM EDT [facility] Stool Rectum structure / Unknown Non-blood Collection / Unknown 02/03/2025 4:51 PM EDT 02/03/2025 5:14 PM EDT Carolin MORIN LAB BODY FLUIDS AND STOOLS ORDERABLES Final Result [facility] [address] [place] [address], * (ABNORMAL) Hemoglobin A1c (02/01/2025 6:21 AM EDT) [facility] Hemoglobin A1C 6.8(H) <6.5 % LAB CHEMISTRY METHOD 02/02/2025 10:17 PM EDT [facility] Mean Bld Glu Estim. 148 mg/dL LAB CHEMISTRY METHOD 02/02/2025 10:17 PM EDT [facility] Blood Venous blood specimen / Unknown Venipuncture / Unknown 02/01/2025 6:21 AM EDT 02/01/2025 7:43 AM EDT Carolin MORIN LAB BLOOD ORDERABLES Final Result Performing Organization Address [facility] Co de Phone Number [facility] [address] [place] [address], * Diabetes Foot Exam (05/28/2024) [facility] Diabetes: Annual Foot Exam abstracted Historical Provider HEALTH MAINTENANCE Final Result * (ABNORMAL) Lipid panel (05/28/2024) [facility] LDL/HDL Ratio 3 0 - 4 Triglycerides 243(A) 0 - 150 mg/dL Cholesterol 168 0 - 200 mg/dL HDL 52 >=40 mg/dL LDL Cholesterol 68 0 - 100 mg/dL Blood Venous blood specimen / Unknown Historical Provider LAB BLOOD ORDERABLES Ce l Result * Urine Albumin Creatinine Ratio (05/30/2023) [facility] Urine Albumin Creatinine Ratio abstracted Historical Provider HEALTH MAINTENANCE Final Result from Last 3 Months or Most Recently Relevant to Health Maintenance Additional Health Concerns Infection Onset Date Last Indicated Human Metapneumovirus 02/09/2025 02/09/2025 Insurance [place]ICA[place] - [place] MEDICARE Advance Directives Documents on File Type Date Recorded 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 Do not modify or discontinue any currently active code status orders. * Full Code - Default Date Activated Date Inactivated Comments 01/28/2025 7:31 AM 02/05/2025 5:57 PM This is order is used when code status has not been discussed with the patient, or code status is otherwise unknown/unconfirmed To update the patient's code status, place a code status order. Do not modify or discontinue any currently active code status orders. * Full Code - Default Date Activated Date Inactivated Comments 09/27/2024 6:36 AM 10/02/2024 6:59 PM This is order is used when code status has not been discussed with the patient, or code status is otherwise unknown/unconfirmed To update the patient's code status, place a code status order. Do not modify or discontinue any currently active code status orders. Healthcare Agents on File Name Relationship Healthcare Agent [facility] Communication Jacqui Mackenzie Spouse Health Care Agent Care Teams Bucket Operator Relationship Specialty Start Date End Date John Kumar MD [address] [place] [address] PCP - General Internal Medicine 09/27/24
--- OUTSIDE RECORDS SUMMARY | 2025-08-06 16:51 | XMS_ITS ---
Author Organization [facility] Care Team Providers Care Prekindergarten Teacher Name Role Phone Camryn Doan Unavailable Unavailable Loretta De Jesus Unavailable Unavailable Jonathan Robin Unavailable Unavailable Myranda Mauro Unavailable Unavailable Maribel Clark Unavailable Unavailable Allergies and adverse reactions Code CodeSystem Substance Reaction Severity StartDate Concern Status 6808 RXNORM Metformin Unknown Unknown active Care Team Name Role Address Phone Organization Dates Jonathan Robin PCP [address] [facility] [address], [place], [address], [facility] (Office): [facility] 04/20/2017 - 05/10/2017 Camrynprerna Doan [address] [place] [address], [address], [facility] (Office): [facility] 04/20/2017 - 05/10/2017 Loretta De Jesus [address], [address], [facility] (Office): [facility] 04/20/2017 - 05/10/2017 Myranda Mauro [address], [address], [facility] (Office): [facility] 04/20/2017 - 05/10/2017 Maribel Clark [address], [address], [place] (Office): [facility] 04/20/2017 - 05/10/2017 Mental Status Section Date Assessment Total Score Description 05/10/2017 BIMS 15 cognitively int act CAM 0 No delirium ind icated PHQ-9 02 minimal depress ion 05/04/2017 BIMS 15 cognitively int act CAM 0 No delirium ind icated PHQ-9 02 minimal depress ion Insurance Providers Problems Problem # Description Date of onset Resolved Date Code CodeSystem Concern Status 1 ACUTE CHOLECYSTITIS 04/20/[address] active 2 CELLULITIS OF RIGHT LOWER LIMB 04/20/[address] active 3 DIFFICULTY IN WALKING, NOT ELSEWHERE CLASSIFIED 04/20/[address] active 4 OTHER ACUTE OSTEOMYELITIS, RIGHT ANKLE AND FOOT 04/20/[address] active 5 OTHER LACK OF COORDINATION 04/20/[address] active Reason for Referral No Reasons for Referral Entered Social History Social History Observation Description Start Date End Date Code Code System Current Smoking Status Tobacco smoking consumption unknown 771976418 SNOMED CT Sex Assigned At Male 1975 04777-7 [facility] Gender Identity Sexual Orientation Vital Signs Code Code System Vitals Name Values and Units Timing Information 9279-1 [facility] Respiratory Rate Value=18.0 Units=/m in 05/10/2017 8462-4 [facility] Blood Pressure-Diastolic Value=60 Un its=mmHg 05/10/2017 8480-6 [facility] Blood Pressure-Systolic Cyfbf=064 Un its=mmHg 05/10/2017 8867-4 [facility] Heart rate Value=70.0 Units=/min 14055-0 [facility] O2 % dC Oximetry Value=96.0 Units= % 05/10/2017 2339-0 [facility] Blood Sugar Rkhio=021.0 Units=mg/dL 05/09/2017 09117-1 [facility] Pain Level Value=0.0 05/09/2017 8310-5 [facility] Body Temperature Value=97.6 Units= F 05/09/2017 83137-1 [facility] Weight Basjy=614.0 Units=Lbs 8302-2 [facility] Height Value=71.0 Units=Inches 04/25/2017
--- OUTSIDE RECORDS SUMMARY | 2025-08-06 16:51 | XMS_ITS | Encounter Summary ---
Author Organization [facility] Address [address] [place] [address] Care Team Providers Care Community Recreation Programmer Name Role Phone John Kumar MD Primary Care Provider [phone] Reason for Visit * Reason Onset Date Comments Request For Order(s) 07/02/2025 Encounter Details Date Type Department Care Team ([facility] st Contact Info) Description 07/02/2025 Telephone Adult Medicine [facility] [address] [place] [phone] John Kumar MD [address] [place], [place] [phone] Social History Tobacco Use Types Packs/Day Years [...] documented in this encounter Progress Notes * Vivienne Barlow - 07/02/2025 3:13 PM EDT [facility] faxing order for Stacy Goodman, to [phone] documented in this encounter Plan of Treatment Upcoming Encounters Date Type Department Care Team (Late st Contact Info) Description 08/10/2025 10:30 AM EST Office Visit Orthopedic Surgery - [place] [address] [phone] Jeremy Camarena, OBI [address] [address] 08/26/2025 8:45 AM EST Office Visit Adult [address] [phone] Michael Kinney NP [address] [place], [place] documented as of this encounter Visit Diagnoses Not on filedocumented in this encounter Additional Health Concerns Infection Onset Date Last Indicated Resolved Time Human Metapneumovirus 02/09/2025 02/09/2025 documented as of this encounter Care Teams Community Recreation Programmer Relationship Specialty Start Date End Date John Kumar MD [address] [place] [address] PCP - General Internal Medicine 09/27/24 documented as of this encounter
--- OUTSIDE RECORDS SUMMARY | 2025-08-06 16:51 | XMS_ITS | Encounter Summary ---
Author Organization [facility] Address [address] [place] [address] Care Team Providers Care Asset Recovery Specialist Name Role Phone John Kumar MD Primary Care Provider [phone] Reason for Visit * Reason Onset Date Comments faxed vna order 08/03/2025 [facility] Encounter Details Date Type Department Care Team ([facility] st Contact Info) Description 08/03/2025 Telephone Adult Medicine [facility] [address] [place] [phone] John Kumar MD [address] [place] [address] Social History Tobacco Use Types Packs/Day Years [...] of Assessment Author No 06/10/2025 1:42 PM BRITTANYT Jane Duckworth RN documented as of this encounter Mental Status * Because of a physical, mental, or emotional condition, do you have serious difficulty concentrating, remembering, or making decisions? (5 years old or older) Answer Entry Date Author No 06/10/2025 1:42 PM Jane Carver RN documented in this encounter Progress Notes * Nguyen Vasquez - 08/03/2025 10:06 AM EST Faxed order received from [employer] 2015 please sign and fax to [phone]. documented in this encounter Plan of Treatment Upcoming Encounters Date Type Department Care Team (Late st Contact Info) Description 08/10/2025 10:30 AM EST Office Visit Orthopedic Surgery - [place] [address] [phone] Jeremy Camarena, OBI [address] [address] 08/26/2025 8:45 AM EST Office Visit [address] [phone] Michael Kinney MEMBERSHIP COUNSELOR [address] [place], [place] documented as of this encounter Visit Diagnoses Not on filedocumented in this encounter Additional Health Concerns Infection Onset Date Last Indicated Resolved Time Human Metapneumovirus 02/09/2025 02/09/2025 documented as of this encounter Care Teams Asset Recovery Specialist Relationship Specialty Start Date End Date John Kumar MD [address] [place], [place] PCP - General Internal Medicine 09/27/24 documented as of this encounter
== END 2025-08-06 14:07 | disposition home or self-care (01) ==
PROVIDERS: PCP Internal Medicine; Visit Provider Registered Nurse Emergency
DX: M53.3 Sacrococcygeal disorders, not elsewhere classified (principal); M51.369 Other intervertebral disc degeneration, lumbar region without mention of lumbar back pain or lower extremity pain; G89.4 Chronic pain syndrome
CPT/HCPCS: 99204; G2211

== ENCOUNTER → 2025-08-06 13:33 | Outpatient (BNVA) | payer MEDICARE, MEDICAID, SELFPAY | PROVIDERS: PCP Internal Medicine; Visit Provider Registered Nurse Emergency | DX: M54.2 Cervicalgia (principal); M53.3 Sacrococcygeal disorders, not elsewhere classified; G89.4 Chronic pain syndrome; E11.65 Type 2 diabetes mellitus with hyperglycemia; E11.42 Type 2 diabetes mellitus with diabetic polyneuropathy; Z79.4 Long term (current) use of insulin; I10 Essential (primary) hypertension; E11.69 Type 2 diabetes mellitus with other specified complication; M86.571 Other chronic hematogenous osteomyelitis, right ankle and foot | CPT/HCPCS: 99202 ==

== ENCOUNTER 2025-08-11 14:44 | Outpatient (REF) | payer MEDICARE, MEDICAID, SELFPAY ==
--- OUTSIDE RECORDS SUMMARY | 2025-08-10 10:30 | XMS_ITS | Encounter Summary ---
Author Organization [employer] Address [address] [place] [address] Care Team Providers Care Bone Char Operator Name Role Phone John Kumar MD Primary Care Provider [phone] Reason for Visit * Reason Comments DM Foot Care DM (diabetes mellitu s), type 2 with neurological complications (CMS/HCC)Surgical wound dehiscence, initial encounterUlcer of midfoot, right, with necrosis of muscle (CMS/[facility])Cellulitis of right ankleNon-pressure chronic ulcer of rig Encounter Details Date Type Department Care Team (Late st Contact Info) Description 08/10/2025 10:30 AM EST Office Visit Orthopedic Surgery - [place] [address] [phone] Jeremy Camarena, DPM [address] [address] Controlled type 2 diabetes mellitus with diabetic polyneuropathy, without long-term current use of insulin (CMS/HCC V24, CMS/HCC V28) (Primary Dx); Charcot's joint of foot, right; Ulcer of right heel, with fat layer exposed (CMS/HCC V24, CMS/HCC V28) Social History Tobacco Use Types Packs/Day Years [...] Entry Date Author No 06/10/2025 1:42 PM BRITTANYT Jane Duckworth RN documented in this encounter Progress Notes * Jeremy Camarena DPM - 08/10/2025 10:30 AM EST Referring MD: oliver Last PCP visit: 04/17/2025 IDENTIFIER: Gurdeep is a 50 y.o. year old male who presents for consultation. CC: Postop right foot HPI: 50-year-old male returns office for right foot ulceration. Patient continues to use a sneaker but using proper dressing supplies and is ambulating less. Patient has has had some good healing over thelateral portion of the wound but has continued deepening of the central portion. Patient is denyingfever nausea vomit shortness of breath ROS: GENERAL: Pt denies nausea, fever, vomiting, chills, or shortness of breath. Pt in NAD. CARDIOLOGY: pt denies chest pain, palpitations LUNGS: pt denies shortness of breath MUSCULOSKELETAL: See HPI, otherwise no joint pain or swelling, back pain, or muscle pain. SKIN: see HPI, otherwise no lesions, rash or itching NEURO: No persistent headache, weakness or numbness The remainder of the review of systems is noncontributory PAST MEDICAL HISTORY: Patient Active Problem List Diagnosis Acute osteomyelitis of right foot ([facility] V24, [facility] V28) Acute osteomyelitis ([facility] V24, [facility] V28[facility] Chronic osteomyelitis ([facility] V24, [facility] V28[facility] Diabetic foot ulcers ([facility] V24, [facility] V28) DM (diabetes mellitus), type 2 with neurological complications ([facility] V24, [facility] V28) DM (diabetes mellitus), type 2 with peripheral vascular complications ([facility] V24, [facility] V28) DM (diabetes mellitus), type 2 with renal complications ([facility] V24, [facility] V28) Essential hypertension Microalbuminuria Polyneuropathy Diabetic foot infection ([facility] V24, [facility] V28) SOCIAL HISTORY: Social History Tobacco Use Smoking status: Former Current packs/day: 0.00 Types: Cigarettes Quit date: 09/24/1996 Years since quittin.8 Smokeless tobacco: Never Substance Use Topics Alcohol use: No ACTIVE MEDICATIONS: Outpatient Medications Marked as Taking for the 08/10/25 encounter (Office Visit) with Jeremy Camarena DPM Medication Sig Dispense Refill amLODIPine (NORVASC) 10 mg tablet Take 1 tablet (10 mg total) by mouth 1 (one) time each day. 30 each 5 diclofenac (Voltaren Arthritis Pain) 1 % topical gel Apply 2 g topically 4 (four) times a day. 150 g 1 ibuprofen (ADVIL,MOTRIN) 600 mg tablet Take 1 tablet (600 mg total) by mouth 3 (three) times a day if needed for mild pain (pain). 60 tablet 1 insulin glargine (LANTUS SoloStar) 100 unit/mL (3 mL) injection pen Inject 8 Units under the skin at bedtime. 5 mL 1 lisinopril (PRINIVIL,ZESTRIL) 40 mg tablet Take 1 tablet (40 mg total) by mouth 1 (one) time each day. 30 each 5 metoprolol succinate (TOPROL-XL) 25 mg 24 hr tablet Take 2 tablets (50 mg total) by mouth 1 (one) time each day. 180 tablet 1 pen needle, diabetic 31 gauge x 5/16 needle Use to inject 1-4 times daily as directed. 200 each 3 traMADoL (ULTRAM) 50 mg tablet Take 0.5 tablets (25 mg total) by mouth 3 (three) times a day if needed for moderate pain. Max Daily Amount: 75 mg 45 tablet 0 ALLERGIES: @ALL@ PHYSICAL EXAM: There were no vitals taken for this visit. PODIATRIC EXAMINATION: GENERAL: Patient appears well nourished, with NAD. VASCULAR: Dorsalis pedis pulses are 2/4 bilaterally and Posterior tibial pulses are 2/4 bilaterally. Capillary filling time within normal limits the digits. No pallor on elevation or rubor on dependency. Positive hair growth. No varicosities. Denies rest pain or claudication pain. NEUROLOGICAL: Sharp/dull sensation diminished, protective sensation diminished on [employer]. Peripheral neuropathy throughout the feet bilaterally. ORTHOPEDIC: Good muscle strength 5/5 of all flexors and extensors. Dorsi flexion of ankle ,10 degrees, plantar flexion WNL. No muscle atrophy. Charcot arthropathy to the right foot with a midfoot breach. Arthritic changes in the digits with hammertoes that are contracted and rigid. DERMATOLOGICAL:.Continued right foot plantar ulceration with extension to the lateral portion of the foot now showing 3 cm x 1.5 cm x 0.3 cm with regular hyperkeratotic rim. Some serous drainage. No clinical signs of infection or abscess or deep tracking BIOMECHANICS: Antalgic gait due to the instability from Charcot arthropathy IMAGING: Multiple areas of arthritic change with Charcot arthropathy and midfoot breach. No bony prominence to the plantar lateral aspect of the foot. No subcutaneous gas. No new osteolytic lesions IMPRESSION: 1. Controlled type 2 diabetes mellitus with diabetic polyneuropathy, without long-term current use of insulin ([facility] V24, [facility] V28) 2. Charcot's joint of foot, right 3. Ulcer of right heel, with fat layer exposed ([facility] V24, [facility] V28) PLAN: Pt was seen and examined, history reviewed. Patient continues to keep tight glucose control and was educated on the importance of this in orderto limit wound healing problems patient's wound required debridement as described below. Patient was dressed with Betadine gauze 4 x 4 And ABD as well as Kerlix. Open wound selective debridement of devitalized soft tissue, fibrin, epidermis, dermis, thru skin and subcutaneous tissue first 20 sq cm or less, using sterile sharp dissection #15 scalpel blade and use of a pickup of the right foot plantar wound dehiscence as well as the new plantar wound to the lateral portion of the right foot. Deferred anesthesia. . Devitalized tissue was not sent to pathology. Patient is following up for his pain stimulating from the upper leg and lower back in order to keephis blood pressure under control Jeremy Camarena DPM documented in this encounter Plan of Treatment Upcoming Encounters Date Type Department Care Team (Late st Contact Info) Description 08/24/2025 11:15 AM EST Office Visit Orthopedic Surgery - [place] [address] [phone] Jeremy Camarena DPM [address] [address] 08/26/2025 8:45 AM EST Office Visit Adult Medicine [address] [phone] Michael Kinney NP [address] [place], [place] documented as of this encounter Visit Diagnoses Diagnosis Controlled type 2 diabetes mellitus with diabetic polyneuropathy, without long- term current use of insulin ([facility] V24, [facility] V28)- Primary Charcot's joint of foot, right Ulcer of right heel, with fat layer exposed ([facility] V24, [facility] V28) documented in this encounter Additional Health Concerns Infection Onset Date Last Indicated Resolved Time Human Metapneumovirus 02/09/2025 02/09/2025 documented as of this encounter Care Teams Bone Char Operator Relationship Specialty Start Date End Date John Kumar MD [address] [place] [address] PCP - General Internal Medicine 09/27/24 documented as of this encounter
--- NOTE | ~2025-08-11 | XR_ITS ---
EXAMINATION: XR LUMBOSACRAL SPINE WITH OBLIQUES CLINICAL INFORMATION: M51.36 - Other intervertebral disc degeneration, lumbar region COMPARISON: None available. TECHNIQUE: AP oblique and lateral views FINDINGS: Multilevel marginal osteophyte formation and endplate sclerosis pronounced at L1 to and L3-4 levels. No acute cortical disruption or malalignment. No lytic or blastic lesions. No gross volume loss. Vascular calcifications, aorta. Calcifications of the vas deferens. XR/XR lumbar spine 4V min IMPRESSION: Multilevel thoracolumbar spondylosis without acute fracture or gross listhesis. Atherosclerosis disease. Calcifications vas deferens. Concerning diabetes. Electronically signed by: Ronen Alberto MD 08/11/2025 03:12 PM [facility]
--- OUTSIDE RECORDS SUMMARY | 2025-08-12 12:36 | XMS_ITS ---
Author Name [facility] Organization Unknown Care Team Organization Name Specialty Phone Email Start Date End Da te [facility] 05/13/2025 [facility] Joann Jensen Primary Care 05/31/2023 05/12/20 24
--- OUTSIDE RECORDS SUMMARY | 2025-08-12 12:37 | XMS_ITS | Clinical Summary ---
Author Organization [facility] Address [address] [place] [address] Phone Care Team Providers Care Anthropology Lecturer Name Role Phone John Kumar MD Primary Care Provider [phone] Allergies Active Allergy Reactions Criticality Noted Date [...] Noted Date Diagnosed Date Diabetic foot infection ([facility] V24, [facility] V2 8) 01/28/2025 Acute osteomyelitis of right foot ([facility] V24, [facility] V28) 09/27/2024 Assessment & Plan (02/18/2025 11:17 AM EDT): Orders: XR Chest 2 Views; Future Acute osteomyelitis ([facility] V24, [facility] V28) 0 10/18/2018 Overview (10/07/2024): 10/08/18 Right MPJ Foot biopsy- acute & chronic osteo Assessment & Plan (10/10/2024 10:23 PM EST): Orders: Basic metabolic panel; Future DM (diabetes mellitus), type 2 with renal complications ([facility] V24, [facility] V28) 08/12/2018 Assessment & Plan (02/18/2025 11:17 AM EDT): Orders: POC glucose manually resulted Microalbuminuria 08/12/2018 Chronic osteomyelitis ([facility] V24, [facility] V28) 08/09/2018 Overview (10/07/2024): 10/08/18 Right Lateral Foot biopsy Diabetic foot ulcers ([facility] V24, [facility] V28) 08/09/2018 Overview (10/07/2024): Right foot, 09/26/18 [...] (diabetes mellitus), type 2 with neurological complications ([facility] V24, [facility] V28) 05/18/2017 Assessment & Plan (12/03/2024 5:04 [...] mellitus), type 2 with peripheral vascular complications ([facility] V24, [facility] V28) 05/18/2017 Resolved Problems Problem Noted Date Diagnosed Date Resolved Date Pneumonia of right lung due to infectious organism, unspecified part of lung 02/09/202502/13 Encounters Date Type Department Care Team Description 08/11/2025 Telephone Adult Medicine [address] [phone] Michael Kinney NP 08/10/2025 10:30 AM EST Office Visit Orthopedic [address] [phone] Jeremy Camarena DPM Controlled type 2 diabetes mellitus with diabetic polyneuropathy, without long-term current use of insulin ([facility] V24, [facility] V28) (Primary Dx); Charcot's joint of foot, right; Ulcer of right heel, with fat layer exposed ([facility] V24, [facility] V28) 08/07/2025 Telephone Adult Medicine [address] [phone] John Kumar MD 08/03/2025 Telephone Adult Medicine [address] [phone] John Kumar MD 07/30/2025 3:15 PM EST Office Visit Orthopedic [place] [address] [phone] Jeremy Camarena DPM Controlled type 2 diabetes mellitus with diabetic polyneuropathy, without long-term current use of insulin ([facility] V24, CMS/HCC V28) (Primary Dx); Charcot's joint of foot, right; Ulcer of right heel, with fat layer exposed (CMS/HCC V24, CMS/HCC V28) 07/21/2025 10:30 AM EDT Office Visit Orthopedic [facility] [address] [phone] Garth Nelson MD Finger pain, left (Primary Dx) 07/20/2025 Telephone Adult Medicine [address] [phone] Michael Kinney, JENNY 07/16/2025 9:45 AM EDT Office Visit Orthopedic [place] [address] [phone] Jeremy Camarena DPM Controlled type 2 diabetes mellitus with diabetic polyneuropathy, without long-term current use of insulin (CMS/HCC V24, CMS/HCC V28) (Primary Dx); Charcot's joint of foot, right; Ulcer of right heel, with fat layer exposed (CMS/HCC V24, CMS/HCC V28) 07/15/2025 8:45 AM EDT Office Visit Adult [address] [phone] Michael Kinney, JENNY Acute left-sided low back pain without sciatica (Primary Dx); Uncontrolled hypertension 07/15/2025 Telephone Adult [address] [phone] John Kumar MD 07/13/2025 Telephone Adult Medicine [address] [phone] John Kumar MD 07/06/2025 9:45 AM EDT Office Visit Orthopedic [place] [address] [phone] Jeremy Camarena DPM Controlled type 2 diabetes mellitus with diabetic polyneuropathy, without long-term current use of insulin (CMS/HCC V24, CMS/[facility] V28) (Primary Dx); Charcot's joint of foot, right; Ulcer of right heel, with fat layer exposed (CMS/HCC V24, CMS/HCC V28) 07/02/2025 Telephone Adult Medicine [address] [phone] John Kumar MD 06/30/2025 9:00 AM EDT Office Visit Orthopedic Surgery [facility] [address] [phone] Oscar Vences PA Other sprain of left ring finger, initial encounter (Primary Dx) 06/30/2025 Telephone Orthopedic [facility] [address] [phone] Angélica Solares 06/24/2025 2:30 PM EDT Office Visit [facility] [address] [phone] Jeremy Camarena, OBI Controlled type 2 diabetes mellitus with diabetic polyneuropathy, without long-term current use of insulin (CMS/[facility] V24, CMS/[facility] V28) (Primary Dx); Charcot's joint of foot, right; Ulcer of right heel, with fat layer exposed (CMS/[facility] V24, CMS/HCC V28) 06/15/2025 11:00 AM EDT Office Visit [address] [phone] Michael Kinney, JENNY Neck pain (Primary Dx); Acute left-sided low back pain without sciatica; Uncontrolled hypertension; DM (diabetes mellitus), type 2 with neurological complications (CMS/HCC V24, CMS/HCC V28); Diabetic ulcer of right midfoot associated with type 2 diabetes mellitus, unspecified ulcer stage (CMS/[facility] V24, CMS/HCC V28); Encounter for examination following treatment at hospital; Encounter for screening for malignant neoplasm of prostate 06/10/2025 1:26 PM EDT - 06/10/2025 9:35 PM EDT Emergency [facility] Emergency [address] [place] [phone] Gabino Blevins MD Neck pain on left side (Primary Dx); Upper back pain Discharge Disposition: Home or Self Care 06/10/[address] [phone] John Kumar MD 06/02/2025 2:49 PM EDT - 06/02/2025 11:59 PM EDT Hospital Encounter [facility] MRI [address] [place] [address] Other sprain of left ring finger, initial encounter Discharge Disposition: Home or Self Care 06/01/2025 10:45 AM EDT Office Visit Orthopedic [place] [address] [phone] Jeremy Camarena DPM Controlled type 2 diabetes mellitus with diabetic polyneuropathy, without long-term current use of insulin ([facility] V24, [facility] V28) (Primary Dx); Charcot's joint of foot, right; Cellulitis of right ankle; Ulcer of right heel, with fat layer exposed ([facility] V24, [facility] V28) 05/26/2025 8:00 AM EDT Consult Orthopedic [facility] [address] [phone] Oscar Vences PA Other sprain of left ring finger, initial encounter (Primary Dx); Acquired trigger finger of left ring finger 05/14/2025 9:15 AM EDT Office Visit Orthopedic [facility] [address] [phone] Jeremy Camarena DPM Controlled type 2 diabetes mellitus with diabetic polyneuropathy, without long-term current use of insulin ([facility] V24, [facility] V28) (Primary Dx); Charcot's joint of foot, right; Neuropathy; Ulcer of right heel, with fat layer exposed ([facility] V24, [facility] V28) from Last 3 Months Immunizations Immunization Administration Dates Next Due Influenza Quadravalent, MDCK , 0.5ml, preservative free (Flucelvax) 6mo and older 07/07/2022,07/07/2022 [employer] SARS-CoV-2 COVID -19, vector-nr, rS-Ad26, preservative free 02/01/2021,02/01/2021 Surgical History Surgery Date Site/Laterality Comments CHOLECYSTECTOMY 04/17/2017 PROCEDURE: HISTORICAL CHOLECYSTECTOMY HERNIA REPAIR 04/17/2017 PROCEDURE: HISTORICAL HERNIA REPAIR/UMB OTHER SURGICAL HISTORY 04/14/2017 Right PROCEDURE: MI DEBRIDEMENT BONE 1ST 20 SQ CM/< Medical [...] mellitus), type 2 with peripheral vascular complications ([facility]/HCC V24, CMS/HCC V28) 05/18/2017 DX:DM (diabetes mellitus), type 2 with peripheral vascular complications (HCC) DM (diabetes mellitus), type 2 with neurological complications (CMS/HCC V24, CMS/HCC V28) 05/18/2017 DX:DM (diabetes mellitus), t ype 2 with neurological complications (HCC) Polyneuropathy 08/09/2018 DX:Polyneuropath y Essential hypertension 06/22/2017 DX:Essent ial hypertension History of DVT (deep vein thrombosis) 05/18/2017 DX:History of DVT (deep vein thrombosis); COMMENT: 2016 Left leg Microalbuminuria 08/12/2018 DX:Microalbumin uria DM (diabetes mellitus), type 2 with renal complications (CMS/HCC V24, CMS/HCC V28) 08/12/2018 DX:DM (diabetes mellitus), t ype 2 with renal complications (HCC) Acute osteomyelitis (CMS/HCC V24, CMS/HCC V28) 10/18/2018 DX:Acute osteomyelitis (HCC) ; COMMENT: 10/08/18 Right MPJ Foot biopsy- acute & chronic osteo Chronic osteomyelitis (CMS/H CC V24, CMS/HCC V28) 08/09/2018 DX:Chronic osteomyelitis (HC C); COMMENT: 10/08/18 Right Lateral Foot biopsy Diabetic foot ulcers (CMS/HC C V24, CMS/HCC V28) 08/09/2018 DX:Diabetic foot ulcers (HCC ); [...] AM EST Office Visit Orthopedic Surgery - [place] [address] [place] [address] [place] [phone] Jeremy Camarena, DPM [address] [address] 08/26/2025 8:45 AM EST Office Visit Adult Medicine [facility] [address] [place], [place] [phone] Michael Kinney NP [address], [place] Health Maintenance Due Date Last Done [...] sprain of left ring finger, initial encounter [place] INJECTION SINGLE TENDON SHEATH OR LIGAMENT APONEUROSIS [...] MD on 06/10/2025 19:38:00 Gabino Blevins MD IM CT PROCEDURES Final Result * ECG 12 lead (06/10/2025 2:12 PM EDT) Ventricular Rate ECG 115 BPM GEMUSE Atrial Rate 115 BPM GEMUSE P-R Interval 140 ms GEMUSE QRS Duration 80 ms GEMUSE Q-T Interval 334 ms GEMUSE QTc 462 ms GEMUSE P Wave [place] 38 degrees GEMUSE R [place] 19 degrees GEMUSE T [place] 39 degrees GEMUSE ECG Interpretation Sinus tachycardia Otherwise normal ECG When compared with ECG of 09-FEB-2025 14:49, No significant change was found Confirmed by MD JAQUAN, MIGUEL ([id number]) on 06/10/2025 5:35:28 PM GEMUSE 06/10/2025 2:12 PM EDT 06/10/2025 5:35 PM EDT us Gabino Blevins MD ECG ORDERABLES Final Re sult Performing Organization Address City/[facility]/ZIP Co de Phone Number GEMUSE * (ABNORMAL) D-dimer, quantitative (06/10/2025 1:48 PM EDT) [facility] D-Dimer, Quant (D-DU) 397(H) <=230 ng/mL DDU LAB COAGULATION METHOD 06/10/2025 2:55 PM EDT [facility] Blood Venous blood specimen / Unknown Venipuncture / Unknown 06/10/2025 1:48 PM EDT 06/10/2025 2:38 PM EDT Narrative [facility] - 06/10/2025 2:55 PM EDT D-Dimer <230 ng/mL (D-Dimer units) is the threshold for exclusion of DVT/PE. D-Dimer may be elevated in: Critically ill, severely infected, trauma patients, DIC, acute CVA, acute CA, unstable angina, AF, old age, , and smoking. D-Dimer may be decreased with: Initiation of heparin therapy and oral anticoagulants. us Gabino Blevins MD LAB BLOOD ORDERABLES Fin al Result Performing Organization Address [facility] Co de Phone Number [facility] [address] [place] [address], [place] [phone] * Troponin I high sensitivity (06/10/2025 1:47 PM EDT) [facility] High Sensitivity Troponin I 12 <=79 ng/L LAB CHEMISTRY METHOD 06/10/2025 3:10 PM EDT [facility] Blood Venous blood specimen / Unknown Venipuncture / Unknown 06/10/2025 1:47 PM EDT 06/10/2025 2:38 PM EDT Narrative [facility] - 06/10/2025 3:10 PM EDT High levels of biotin in samples may falsely decrease hsTroponin values. Use caution when interpreting hsTroponin results in patients taking biotin who exhibit renal impairment (eGFR <60) or in patients taking more than 20 mg/day of biotin. us Gabino Blevins MD LAB BLOOD ORDERABLES Fin al Result [facility] [address] [place] [address], [place] [phone] * (ABNORMAL) CBC auto differential (06/10/2025 1:47 PM EDT) WBC 6.8 4.8 - 10.8 K/mcL LAB [...] % LAB [facility]ETOLOG[facility] Monocytes Relative 7.1 % LAB HEMETOLOGY [...] LAB Eosinophils Absolute 0.02 0.00 - 0.50 K/[facility] LAB HEMETOLOGY METHOD 06/10/2025 3:25 PM EDT [facility] Basophils Absolute 0.04 0.00 - 0.20 K/[facility] LAB HEMETOLOGY METHOD 06/10/2025 3:25 PM EDT [facility] Immature Granulocytes Absolute 0.03 0.00 - 0.03 K/[facility] LAB HEMETOLOGY METHOD 06/10/2025 3:25 PM EDT [facility] Blood Venous blood specimen / Unknown Venipuncture / Unknown 06/10/2025 1:47 PM EDT 06/10/2025 2:38 PM EDT us Gabino Blevins MD LAB BLOOD ORDERABLES Fin al Result Performing Organization Address City/[facility] Co de Phone Number [facility] [address] [place] [address], * Magnesium (06/10/2025 1:47 PM EDT) Magnesium 2.1 1.9 - 2.6 mg/dL LAB CHEMISTRY METHOD 06/10/2025 3:05 PM EDT [facility] Blood Venous blood specimen / Unknown Venipuncture / Unknown 06/10/2025 1:47 PM EDT 06/10/2025 2:38 PM EDT us Gabino Blevins MD LAB BLOOD ORDERABLES Fin al Result [facility] [address] [place] [address], [place] [phone] * (ABNORMAL) Comprehensive metabolic panel (06/10/2025 1:47 PM EDT) Sodium 137 133 - 145 mmol/L LAB [...] 11 LAB CHEMISTRY METHOD 06/10/2025 3:42 PM EDT [facility] Glucose 164(H) 70 - 100 mg/dL LAB CHEMISTRY METHOD 06/10/2025 3:42 PM EDT [facility] BUN 29(H) 5 - 25 mg/dL LAB CHEMISTRY METHOD 06/10/2025 3:42 PM EDT [facility] Creatinine 1.19 0.70 - 1.30 mg/dL LAB CHEMISTRY METHOD 06/10/2025 3:42 PM EDT [facility] eGFR 73 >=60 mL/min/1. 73m2 LAB CHEMISTRY METHOD 06/10/2025 3:42 PM EDT [facility] Comment:Calculation based on the Chronic Kidney Disease Epidemiology Collaboration (CKD-EPI) equation refit without adjustment for race. BUN/Creatinine Ratio 24.4 LAB CHEMISTRY METHOD 06/10/2025 3:42 PM EDT [facility] Calcium 9.1 8.5 - 10.5 mg/dL LAB CHEMISTRY METHOD 06/10/2025 3:42 PM EDT [facility] AST (SGOT) 65(H) 10 - 42 unit/L LAB CHEMISTRY METHOD 06/10/2025 3:42 PM EDT [facility] Comment:Results verified by repeat testing ALT (SGPT) 81(H) 10 - 60 unit/L LAB CHEMISTRY METHOD 06/10/2025 3:42 PM EDT [facility] Comment:Results verified by repeat testing Alkaline Phosphatase 76 42 - 121 unit/L LAB CHEMISTRY METHOD 06/10/2025 3:42 PM EDT [facility] Total Protein 7.3 6.0 - 8.0 g/dL LAB CHEMISTRY METHOD 06/10/2025 3:42 PM EDT [facility] Albumin 3.4 3.2 - 5.0 g/dL LAB CHEMISTRY METHOD 06/10/2025 3:42 PM EDT [facility] Total Bilirubin 3.0(H) 0.0 - 1.4 mg/dL LAB CHEMISTRY METHOD 06/10/2025 3:42 PM EDT [facility] Blood Venous blood specimen / Unknown Venipuncture / Unknown 06/10/2025 1:47 PM EDT 06/10/2025 2:38 PM EDT us Gabino Blevins MD LAB BLOOD ORDERABLES Fin al Result [facility] [address] [place] [address], * MR Finger wo Contrast Left (06/02/2025 [...] Signed Date: 06/03/2025 11:26 ET Workstation ID: [id number] Transcribed By: Self Edit Transcribed Date: 06/03/2025 [...] Signed Date: 06/03/2025 11:26 ET Workstation ID: [id number] Transcribed By: Self Edit Transcribed Date: 06/03/2025 03:34 ET us Oscar MORIN IMG MRI PROCEDURES Final Result * [place] INJECTION SINGLE TENDON SHEATH OR LIGAMENT APONEUROSIS [...] with patient: Verbal Pre-procedure timeout performed: yes us Oscar MORIN IN CLINIC/BEDSIDE ORDERABLES Fi nal Result * Occult blood stool, guaiac (02/03/2025 4:51 PM EDT) [facility] Occult Blood, Stool #1 Negative Negative 02/03/2025 5:56 PM EDT [facility] Stool Rectum structure / Unknown Non-blood Collection / Unknown 02/03/2025 4:51 PM EDT 02/03/2025 5:14 PM EDT us Carolin MORIN LAB BODY FLUIDS AND STOOLS ORDERABLES Final Result Performing Organization Address [facility]/ZIP Co de Phone Number [facility] [address] [place] [address], [place] [phone] * (ABNORMAL) Hemoglobin A1c (02/01/2025 6:21 AM EDT) [facility] Hemoglobin A1C 6.8(H) <6.5 % LAB CHEMISTRY METHOD 02/02/2025 10:17 PM EDT [facility] Mean Bld Glu Estim. 148 mg/dL LAB CHEMISTRY METHOD 02/02/2025 10:17 PM EDT [facility] Blood Venous blood specimen / Unknown Venipuncture / Unknown 02/01/2025 6:21 AM EDT 02/01/2025 7:43 AM EDT us Carolin MORIN LAB BLOOD ORDERABLES Final Result [facility] [address] [place] [address], [place] [phone] * Diabetes Foot Exam (05/28/2024) [facility] Diabetes: Annual Foot Exam abstracted Historical Provider HEALTH MAINTENANCE Final Result * (ABNORMAL) Lipid panel (05/28/2024) LDL/HDL Ratio 3 0 - 4 Triglycerides 243(A) 0 - 150 mg/dL Cholesterol 168 0 - 200 mg/dL HDL 52 >=40 mg/dL LDL Cholesterol 68 0 - 100 mg/dL Blood Venous blood specimen / Unknown Historical Provider LAB BLOOD ORDERABLES Ce l Result * Urine Albumin Creatinine Ratio (05/30/2023) Urine Albumin Creatinine Ratio abstracted Historical Provider HEALTH MAINTENANCE Final Result from Last 3 Months or Most Recently Relevant to Health Maintenance Additional Health Concerns Infection Onset Date Last Indicated Human Metapneumovirus 02/09/2025 02/09/2025 Insurance [place] - [place] MEDICARE Advance Directives Documents on File Type Date Recorded Patient Membership Counselor Expl anation Advance Directives and Living Will [...] Agents on File Name Relationship Healthcare [facility] Jacqui Mackenzie Spouse Health Care Agent Care Teams Anthropology Lecturer Relationship Specialty Start Date End Date John Kumar MD [address] [place] [address] PCP - General Internal Medicine 09/27/24
--- OUTSIDE RECORDS SUMMARY | 2025-08-12 12:37 | XMS_ITS | Encounter Summary ---
Author Organization [facility] Address [address] [place] [address] Care Team Providers Care Architect Internship Name Role Phone John Kumar MD Primary Care Provider [phone] Reason for Visit * Reason Onset Date Comments faxed vna order 08/07/2025 [facility] 0851 Encounter Details Date Type Department Care Team ([facility] [place] [facility] st Contact Info) Description 08/07/2025 Telephone Adult Medicine [facility] [address] [place] [phone] John Kumar MD [address] [place] [address] Social History Tobacco Use Types Packs/Day Years [...] of Assessment Author No 06/10/2025 1:42 PM Jane Carver RN * Are you blind or do you have serious difficulty seeing, even when wearing glasses? Answer Date of Assessment Author No 06/10/2025 1:42 PM BRITTANYT Jane Duckworth RN * Do you have serious difficulty walking or climbing stairs? Answer Date of Assessment Author No 06/10/2025 1:42 PM EDT Jane Duckworth RN * Do you have serious difficulty dressing or bathing? Answer Date of Assessment Author No 06/10/2025 1:42 PM BRITTANYT Jane Duckworth RN * Because of a physical, mental, or emotional condition, do you have serious difficulty doing errandsalone such as visiting the doctor? Answer Date of Assessment Author No 06/10/2025 1:42 PM Jane Carver RN documented as of this encounter Mental Status * Because of a physical, mental, or emotional condition, do you have serious difficulty concentrating, remembering, or making decisions? (5 years old or older) Answer Entry Date Author No 06/10/2025 1:42 PM Jane Carver RN documented in this encounter Progress Notes * Joanie España [place] - 08/11/2025 1:36 PM EST [id number] Signed, scanned and faxed via Right fax. 08/05/25-10/03/25 Faxed [phone] * Nguyen Vasquez - 08/07/2025 3:50 PM EST Faxed order received from [facility] [id number] please sign and fax to [phone]. documented in this encounter Plan of Treatment Upcoming Encounters Date Type Department Care Team (Late st Contact Info) Description 08/24/2025 11:15 AM EST Office Visit Orthopedic Surgery [facility] [address] [phone] Jeremy Camarena, DPAlyssa [address] [address] 08/26/2025 8:45 AM EST Office Visit Adult Medicine [address] [phone] Michael Kinney TREAD BOOKER [address] [place], [place] documented as of this encounter Visit Diagnoses Not on filedocumented in this encounter Additional Health Concerns Infection Onset Date Last Indicated Resolved Time Human Metapneumovirus 02/09/2025 02/09/2025 documented as of this encounter Care Teams Architect Internship Relationship Specialty Start Date End Date John Kumar MD [address] [place] [address] PCP - General Internal Medicine 09/27/24 documented as of this encounter
--- OUTSIDE RECORDS SUMMARY | 2025-08-12 12:37 | XMS_ITS | Encounter Summary ---
Author Organization [facility] Address [address] [place] [address] Care Team Providers Care Political Science Professor Name Role Phone John Kumar MD Primary Care Provider [phone] Reason for Visit * Reason Onset Date Comments VNA 07/20/2025 Encounter Details Date Type Department Care Team ([facility] st Contact Info) Description 07/20/2025 Telephone Adult Medicine [facility] [address] [place], [place] [phone] Michael Kinney, BENCH WORKER [address] [place], [place] Social History Tobacco Use Types Packs/Day [...] Assessment Author No 06/10/2025 1:42 PM EDT Jaen Duckworth RN * Do you have serious [...] AM EST Office Visit Orthopedic Surgery [place] [address] [phone] Jeremy Camarena, DPM [address] [address] 08/26/2025 8:45 AM EST Office Visit Adult Medicine [address] [phone] Michael Kinney NP [address] [place], [place] documented as of this encounter Visit Diagnoses Not on filedocumented in this encounter Additional Health Concerns Infection Onset Date Last Indicated Resolved Time Human Metapneumovirus 02/09/2025 02/09/2025 documented as of this encounter Care Teams Political Science Professor Relationship Specialty Start Date End Date John Kumar MD [address] [place] [address] PCP - General Internal Medicine 09/27/24 documented as of this encounter
--- OUTSIDE RECORDS SUMMARY | 2025-08-12 12:37 | XMS_ITS | Encounter Summary ---
Author Organization [facility] Address [address] [place] [address] Care Team Providers Care Insurance Verification Rep Name Role Phone John Kumar MD Primary Care Provider [phone] Reason for Visit * Reason Onset Date Comments faxed vna order 08/03/[address] [facility] g[facility] 2014 Encounter Details Date Type Department Care Team ([facility] st Contact Info) Description 08/03/2025 Telephone Adult Medicine [facility] [address] [place] [phone] John Kumar MD [address] [place] [address] Social History Tobacco Use Types Packs/Day Years [...] of Assessment Author No 06/10/2025 1:42 PM EDJane Phelps RN * Are you blind or do [...] 10:06 AM EST Faxed order received from [employer] 2015 please sign and fax to [phone]. documented in this encounter Plan of Treatment Upcoming Encounters Date Type Department Care Team (Late st Contact Info) Description 08/24/2025 11:15 AM EST Office Visit Orthopedic Surgery - [place] [address] [phone] Jeremy Camarena, OBI [address] [address] 08/26/2025 8:45 AM EST Office Visit [address] [phone] Michael Kinney BEAUTY CULTURIST APPRENTICE [address] [place], [place] documented as of this encounter Visit Diagnoses Not on filedocumented in this encounter Additional Health Concerns Infection Onset Date Last Indicated Resolved Time Human Metapneumovirus 02/09/2025 02/09/2025 documented as of this encounter Care Teams Insurance Verification Rep Relationship Specialty Start Date End Date John Kumar MD [address] [place], [place] PCP - General Internal Medicine 09/27/24 documented as of this encounter
--- OUTSIDE RECORDS SUMMARY | 2025-08-12 12:37 | XMS_ITS | Encounter Summary ---
Author Organization [facility] Address [address] [place] [address] Care Team Providers Care Thermal Engineer Name Role Phone John Kumar MD Primary Care Provider [phone] Reason for Visit * Reason Onset Date Comments Medication Problem 08/11/2025 Encounter Details Date Type Department Care Team ([facility] st Contact Info) Description 08/11/2025 Telephone Adult Medicine [facility] [address] [place], [place] [phone] Michael Kinney, SCHOOL PHOTOGRAPH EDITOR [address] [place], [place] Social History Tobacco Use Types Packs/Day [...] documented in this encounter Progress Notes * Shalonda Preston - 08/11/2025 8:42 AM EST Medication Problem: What is the name of the medication patient is having a problem with?: traMADoL (ULTRAM) 50 mg tablet What is the problem?: patient is asking if he can get a refill on this until he sees Nohemi on 08/26. Per patient, he saw Pain Management at [facility] last week and it was recommended the patient continue with this medication. Who is calling about the problem? : Spouse: Name: Jacqui Is this a NEW medication?: yes How long has the patient been taking this medication? June Who prescribed this medication for the patient? Nohemi Kinney Who is patients PCP?: John Kumar MD Payor: MEDICARE / Plan: MEDICARE PART A & B / Product Type: Medicare / documented in this encounter Plan of Treatment Upcoming Encounters Date Type Department Care Team (Late st Contact Info) Description 08/24/2025 11:15 AM EST Office Visit Orthopedic Surgery - [place] 250 175 [facility] [address] [place] [address] Jeremy Camarena, DPM 175 [facility] [address] [place] [address] 08/26/2025 8:45 AM EST Office Visit Adult Medicine [facility] [address] [place], [place] [phone] Michael Kinney SCHOOL PHOTOGRAPH EDITOR [address] [place], [place] documented as of this encounter Visit Diagnoses Not on filedocumented in this encounter Additional Health Concerns Infection Onset Date Last Indicated Resolved Time Human Metapneumovirus 02/09/2025 02/09/2025 documented as of this encounter Care Teams Thermal Engineer Relationship Specialty Start Date End Date John Kumar MD [address] [place] [address] PCP - General Internal Medicine 09/27/24 documented as of this encounter
--- OUTSIDE RECORDS SUMMARY | 2025-08-12 12:37 | XMS_ITS | Encounter Summary ---
Author Organization [facility] Address [address] [place] [address] Care Team Providers Care Veterinary Parasitologist Name Role Phone John Kumar MD Primary Care Provider [phone] Reason for Visit * Reason Onset Date Comments faxed vna order 07/13/2025 [facility] 1594 Encounter Details Date Type Department Care Team ([facility] st Contact Info) Description 07/13/2025 Telephone Adult Medicine [facility] [address] [place] [phone] John Kumar MD [address] [place] [address] Social History Tobacco Use Types Packs/Day Years [...] 1:56 PM EDT Faxed order received from [employer] 1597 please sign and fax to [phone]. documented in this encounter Plan of Treatment Upcoming Encounters Date Type Department Care Team (Late st Contact Info) Description 08/24/2025 11:15 AM EST Office Visit Orthopedic Surgery - [place] [address] [phone] Jeremy Camarena, DPAlyssa 175 [facility] 250 [place] [address] 08/26/2025 8:45 AM EST Office Visit [address] [phone] Michael Kinney NP [address] [place], [place] documented as of this encounter Visit Diagnoses Not on filedocumented in this encounter Additional Health Concerns Infection Onset Date Last Indicated Resolved Time Human Metapneumovirus 02/09/2025 02/09/2025 documented as of this encounter Care Teams Veterinary Parasitologist Relationship Specialty Start Date End Date John Kumar MD [address] [place], [place] PCP - General Internal Medicine 09/27/24 documented as of this encounter
== END 2025-08-11 14:45 | disposition home or self-care (01) ==
LOC: HO.HMGCX 14:44
PROVIDERS: PCP Internal Medicine; Visit Provider Registered Nurse Emergency
DX: M51.369 Other intervertebral disc degeneration, lumbar region without mention of lumbar back pain or lower extremity pain (principal)
CPT/HCPCS: 72110

== ENCOUNTER → 2025-08-11 14:49 | Outpatient (BNV) | payer MEDICARE, MEDICAID, SELFPAY | PROVIDERS: PCP Internal Medicine; Visit Provider Radiology Diagnostic Radiology | DX: M51.369 Other intervertebral disc degeneration, lumbar region without mention of lumbar back pain or lower extremity pain (principal); M47.815 Spondylosis without myelopathy or radiculopathy, thoracolumbar region; I25.10 Atherosclerotic heart disease of native coronary artery without angina pectoris; N50.89 Other specified disorders of the male genital organs | CPT/HCPCS: 72110 ==

== ENCOUNTER 2025-09-07 18:36 | Outpatient (REF) | payer MEDICARE, MEDICAID, SELFPAY ==
--- NOTE | ~2025-09-07 | MR_ITS ---
EXAMINATION: MR LUMBAR SPINE WITHOUT CONTRAST CLINICAL INFORMATION: M 53.3. COMPARISON: Correlated to x-ray dated August 11, 2025 TECHNIQUE: MRI of the lumbar spine was obtained using routine sequences without contrast. FINDINGS: Last rib-bearing vertebra labeled T12.. Superior endplate compression deformity representing 20% volume loss without retropulsion at T12 with intrinsic hyperintense T1 signal and hyperintense T2 and hypointense STIR bone marrow signal. No bone marrow STIR signal abnormality in the axial skeleton. Multilevel disc desiccation and small marginal osteophyte formation from T11-12 to L4-5. Superior endplate compression deformity representing 20% volume loss at L2, L3 and L4 without associated susceptibility signal.. There is normal alignment. Conus medullaris ends at pedicle of L1 with normal signal. T11-12: No disc herniation. No neuroforamina stenosis. T12-L1: No disc herniation. No neuroforamina stenosis. Bilateral facet joint effusions. L1-2: Broad-based disc bulging. Facet joint hypertrophy. No central spinal canal or neuroforamina stenosis. L2-3: Broad-based disc bulging. Facet joint and ligamentum flavum hypertrophy. Reduced AP diameter of the thecal sac. No neuroforamina stenosis. L3-4: Broad-based disc bulging. Facet joint and ligamentum flavum hypertrophy. Reduced AP diameter of the thecal sac and neuroforamina. L4-5: Broad-based disc bulging. Facet joint and ligamentum flavum hypertrophy. Reduced AP diameter of the thecal sac and neuroforamina likely encroaching the neural elements. L5-S1: Broad-based disc bulging. Facet joint hypertrophy. Reduced AP diameter of the thecal sac and neuroforamina. No prevertebral compartment hematoma, mass or fluid collection. Cystic lesions in the right kidney. MR/MR lumbar spine wo con IMPRESSION: Multilevel spondylosis pronounced at L4-5 and L3-4 likely encroaching the neural elements at L4-5. Old likely sclerotic compression deformity, T12. Electronically signed by: Ronen Alberto MD 09/08/2025 07:[address] [facility]
--- OUTSIDE RECORDS SUMMARY | 2025-09-07 10:00 | XMS_ITS | Encounter Summary ---
Author Organization [facility] Address [address] [place] [address] Care Team Providers Care Egg Grader Name Role Phone John Kumar MD Primary Care Provider [phone] Reason for Visit * Reason Comments Post-op DM (diabetes mellitu s), type 2 with neurological complications (CMS/HCC)Surgical wound dehiscence, initial encounterUlcer of midfoot, right, with necrosis of muscle (CMS/HCC)Cellulitis of right ankleNon-pressure chronic ulcer of right ankle with fat layer exposed Encounter Details Date Type Department Care Team (Late st Contact Info) Description 09/07/2025 10:00 AM EST Office Visit Orthopedic Surgery - [place] [address] [phone] Jeremy Camarena, DPAlyssa [address] [address] Controlled type 2 diabetes mellitus with diabetic polyneuropathy, without long-term current use of insulin (CMS/HCC V24, CMS/HCC V28) (Primary Dx); Charcot's joint of foot, right; Ulcer of midfoot, right, with necrosis of muscle (CMS/HCC V24, CMS/HCC V28); Cellulitis of right ankle Social History Tobacco Use Types Packs/Day Years Used Date Smoking Tobacco: Former Cigarettes 0 Q uit: 09/24/1996 Smokeless Tobacco: Never Alcohol Use Standard Drinks/Week Comments No 0 (1 standard drink = 0.6 oz pur e alcohol) Housing Instability Answer Date Recorde d Are you worried that in the next 2 months you may not have stable housing? No 08/26/2025 Food Access & Nutrition Answer Date Rec orded Do you have access to a vari ety of food including fruits and vegetables? Yes 08/26/2025 Access to Healthcare Answer Date Record ed Within the last 3 months, ho w many times did you visit the emergency department for your medical care? 1 08/26/2025 Health Literacy Answer Date Recorded How often do you need to hav e someone help you when you read instructions, pamphlets, or other written material from your doctor or pharmacy? Never 08/26/2025 Caregiver: How often do you need to have someone help you when you read instructions, pamphlets, or other written material from your doctor or pharmacy? Not on file 08/26/2025 Financial Risk Answer Date Recorded How hard is it for you to pa y for the very basics like food, housing, medical care, and air conditioning / heating? Not very hard 08/26/2025 Transportation Answer Date Recorded Has the lack of transportati on kept you from meetings, work, or from getting things needed for daily living? Yes Has the lack of transportati on kept you from medical appointments or from getting medications? Yes 08/26/2025 Food Risk Answer Date Recorded Within the past 12 months we worried whether our food would run out before we got money to buy more. Never true 08/26/2025 Within the past 12 months th e food we bought just didn't last and we didn't have money to get more. Never true 08/26/2025 Dependent Care Answer Date Recorded Do you need help finding or paying for care for your loved ones. For example, exceptional children's teacher or elderly care for an older adult? No 08/26/2025 Education Answer Date Recorded Do you think completing more education or training, like finishing a GED, going to college, or learning a trade, would be helpful for you? No 08/26/2025 Employment and Income Answer Date Recor ded During the last four weeks, have you been actively looking for work? No 08/26/2025 Living Situation Answer Date Recorded What is your living situation? Unrecognized valu e 08/26/2025 Interpersonal Safety Answer Date Record ed Physical [...] Jane Carver RN documented in this encounter Ordered Prescriptions Prescription Sig Dispense Quantity Refills Last Filled Start Date End Date doxycycline (Vibramycin) 100 mg capsule Take 1 capsule (100 mg total) by mouth 2 (two) times a day for 10 days. 20 each 09/07/2025 documented in this encounter Progress Notes * Jeremy Camarena DPM - 09/07/2025 10:00 AM EST Referring MD: oliver Last PCP visit: 04/17/2025 IDENTIFIER: Gurdeep is a 50 y.o. year old male who presents for consultation. CC: Postop right foot HPI: 50-year-old diabetic male returns to office for right foot ulceration. Patient notes that he has been having some increased drainage and wound size since previous visit. Patient denies walking more. Patient notes he has had some fever nausea. Patient denies any other symptoms of constitutional infection ROS: GENERAL: Pt denies nausea, fever, vomiting, [...] List Diagnosis Acute osteomyelitis of right foot ([facility] V24, [facility] V28) Acute osteomyelitis ([facility] V24, [facility] V28) Chronic osteomyelitis ([facility] V24, [facility] V28) Diabetic foot ulcers ([facility] V24, [facility] V28) DM (diabetes mellitus), type 2 with neurological complications ([facility] V24, [facility] V28) DM (diabetes mellitus), type 2 with peripheral vascular complications ([facility] V24, [facility] V28) DM (diabetes mellitus), type 2 with renal complications ([facility] V24, [facility] V28) Essential hypertension Microalbuminuria Polyneuropathy Diabetic foot infection ([facility] V24, [facility] V28) SOCIAL HISTORY: Social History Tobacco Use Smoking status: Former Current packs/day: 0.00 Types: Cigarettes Quit date: 09/24/1996 Years since quittin.9 Smokeless tobacco: Never Substance Use Topics Alcohol use: No ACTIVE MEDICATIONS: No outpatient medications have been marked as taking for the 09/07/25 encounter (Office Visit) Cherri Camarena DPM. ALLERGIES: @ALL@ PHYSICAL EXAM: There were no [...] Sharp/dull sensation diminished, protective sensation diminished on [place]. Peripheral neuropathy throughout the feet bilaterally. ORTHOPEDIC: [...] lateral portion of the foot now showing 3.0 cm x 1.5 cm x 0. 6 cm with regular hyperkeratotic rim. Some serous drainage. Periwound erythematous increase with redness and swelling. Malodor noted. Wound extends to the musculotendinous tissue. BIOMECHANICS: Antalgic gait due to the instability from Charcot arthropathy IMAGING: Multiple areas of arthritic change with Charcot arthropathy and midfoot breach. No bony prominence to the plantar lateral aspect of the foot. No subcutaneous gas. No new osteolytic lesions IMPRESSION: 1. Controlled type 2 diabetes mellitus with diabetic polyneuropathy, without long-term current use of insulin (CMS/HCC V24, CMS/HCC V28) 2. Charcot's joint of foot, right 3. Ulcer of midfoot, right, with necrosis of muscle (CMS/HCC V24, CMS/HCC V28) 4. Cellulitis of right ankle PLAN: Pt was seen and examined, history reviewed. Patient continues to keep tight glucose control and was educated that this helps reduce the continuation of breakdown of the Charcot deformity and the wound to the bottom of the foot new concern for cellulitis of the right foot with increased malodor and drainage and deepening of the wound site. Patient was placed on doxycycline 100 mg twice daily for 10 days.Patient return in 10days to be reevaluated Open wound selective debridement of devitalized soft tissue, fibrin, epidermis, dermis, thru skin and subcutaneous tissue and musculotendinous tissue first 20 sq cm or less, using sterile sharp dissection #15 scalpel blade and use of a pickup of the right foot plantar wound dehiscence as well as the new plantar wound to the lateral portion of the right foot. Deferred anesthesia. . Devitalized tissue was not sent to pathology. Patient is currently being worked up for his lower back pain Jeremy Camarena DPM documented in this encounter Plan of Treatment Upcoming Encounters Date Type Department Care Team (Late st Contact Info) Description 09/15/2025 10:30 AM EST Office Visit Adult Medicine [address] [phone] Kyaw Potter PA [address] [place] [address] 09/21/2025 1:30 PM EST Office Visit Orthopedic Surgery - [place] [address] [phone] Jeremy Camarena, DPAlyssa [address] [address] 09/30/2025 2:00 PM EST Office Visit Adult [address] [phone] Michael Kinney NP [address] [place] [address] documented as of this encounter Visit Diagnoses Diagnosis Controlled type 2 diabetes mellitus with diabetic polyneuropathy, without long- term current use of insulin ([facility] V24, [facility] V28)- Primary Charcot's joint of foot, right Ulcer of midfoot, right, with necrosis of muscle ([facility] V24, [facility] V28) Cellulitis of right ankle documented in this encounter Additional Health Concerns Infection Onset Date Last Indicated Resolved Time Human Metapneumovirus 02/09/2025 02/09/2025 Assessment Noted Time PHQ-9 Depression Total Score: 0 08/26/20 9:13 AM EST documented as of this encounter Care Teams Egg Grader Relationship Specialty Start Date End Date John Kumar MD [address] [place] [address] PCP - General Internal Medicine 09/27/24 documented as of this encounter
--- OUTSIDE RECORDS SUMMARY | 2025-09-07 22:47 | XMS_ITS | Encounter Summary ---
Author Organization [facility] Address [address] [place] [address] Care Team Providers Care Coal Cager Name Role Phone John Kumar MD Primary Care Provider [phone] Reason for Visit * Reason Onset Date Comments triage elevated B/P 09/02/2025 Please call the triage nurse Encounter Details Date Type Department Care Team ([facility] st Contact Info) Description 09/02/[address] [facility] [address] [place] [phone] John Kumar MD [address] [place] [address] Social History Tobacco Use Types Packs/Day Years [...] care for your loved ones. For example, child care worker or elderly care for an older adult? [...] Assessment Author No 06/10/2025 1:42 PM Jane Carver, RN * Are you blind or do you have serious difficulty seeing, even when wearing glasses? Answer Date of Assessment Author No 06/10/2025 1:42 PM Jane Carver, RN * Do you have serious difficulty [...] documented in this encounter Progress Notes * Valerie Rivera RN - 09/02/2025 3:04 PM EST Spoke with provider, called VNA nurse and requested tat she bring pt. Pill box and set him up with instruction, monitor BP at visits and to call office with any concerns with either elevated BP or low BP . Apt. Made for follow up in two weeks * Valerie Rivera RN - 09/02/2025 12:20 PM EST Speaking with Dawson the A nurse and she states every time I go out there his BP is Elevated . Bp 185/100 or 165/100. Now over the last month She will call him right before she goes to see him and direct him to take BP medication and then on her arrival BP is better 140/84 She has been doing this x 1 month . He will tell her he took them all but other days sts he only took his lisinopril . This A nurse is concerned because pt. Doesn't just see her and is not sure if pt. Is taking all the antihypertensive medication that has been prescribed blood glucose pt. Tells her is good She sts Pt. Does not have No cp , no sob, no weakness, no headache Called pt. He states he definetly is missing does because his sleep cycle is so thrown off. He doesremember to take his gabapentin 3 times a day and when the nurse calls him he'll take them all at once before she comes. Pt. Is asymptomatic at present time. Insurance will not cover nursing visits to go out each day . I discussed with pt. The VNA is instructed to bring a pill box to monitor medication and I will send to provider regarding adjusting medication since pt. Has not realistically taking it as prescribed . Pt. Seen in the office 08/26 an HTCZ was added to ,Metoprolol, lisinopril, and amlodipine and takingtramadol for pain I Will send to provider for review * Tano Bryant LPN - 09/02/2025 12:10 PM EST Please triage see VNA message * Damaris Fraga - 09/02/2025 11:26 AM EST VNA CALL Which [facility]NA office is calling? [facility] Full name of caller: Dawson The caller is A nurse Is the caller at the patients home?: no Reason for call: Elevated Blood Pressure; requesting for call back Does caller need an urgent call back? yes Was CONTACT Telephone # obtained above?: yes Fax #: n/a documented in this encounter Plan of Treatment Upcoming Encounters Date Type Department Care Team (Late st Contact Info) Description 09/15/2025 10:30 AM EST Office Visit Adult Medicine [facility] [address] [place] [phone] Kyaw Potter PA [address] [place] [address] 09/21/2025 1:30 PM EST Office Visit Orthopedic Surgery - [place] [address] [phone] Jeremy Camarena, OBI [address] [address] 09/30/2025 2:00 PM EST Office Visit Adult Medicine [facility] [address] [place], [place] [phone] Michael Kinney NP [address] [place], [place] documented as of this encounter Visit Diagnoses Not on filedocumented in this encounter Additional Health Concerns Infection Onset Date Last Indicated Resolved Time Human Metapneumovirus 02/09/2025 02/09/2025 Assessment Noted Time PHQ-9 Depression Total Score: 0 08/26/20 9:13 AM EST documented as of this encounter Care Teams Coal Cager Relationship Specialty Start Date End Date John Kumar MD [address] [place] [address] PCP - General Internal Medicine 09/27/24 documented as of this encounter
--- OUTSIDE RECORDS SUMMARY | 2025-09-07 22:47 | XMS_ITS | Clinical Summary ---
Author Organization [facility] Address [address] [place] [address] Phone Care Team Providers Care Vb Developer Name Role Phone John Kumar MD Primary Care Provider Allergies Active Allergy Reactions Criticality Noted Date Comments Empagliflozin Dizziness High 09/27/2024 Metformin Diarrhea High 05/18/2017 Gi side effects Medications pen needle, diabetic 31 gauge x 5/16 needle Use to inject 1-4 times daily as directed. 200 each 3 5 11/03/19 26 Active insulin glargine (LANTUS SoloStar) 100 unit/mL (3 mL) injection pen Inject 8 Units under the skin at bedtime. 5 mL 1 5 Active amLODIPine (NORVASC) 10 mg tablet Take 1 tablet (10 mg total) by mouth 1 (one) time each day. 30 each 5 5 Active ibuprofen (ADVIL,MOTRIN) 600 mg tablet Take 1 tablet (600 mg total) by mouth 3 (three) times a day if needed for mild pain (pain). 60 tablet 1 5 Active diclofenac (Voltaren Arthritis Pain) 1 % topical gel Apply 2 g topically 4 (four) times a day. 150 g 1 5 Active lisinopril (PRINIVIL,ZESTRI L) 40 mg tablet Take 1 tablet (40 mg total) by mouth 1 (one) time each day. 30 each 5 5 12/13/19 26 Active metoprolol succinate (TOPROL-XL) 25 mg 24 hr tablet Take 2 tablets (50 mg total) by mouth 1 (one) time each day. 180 tablet 1 5 Active gabapentin (NEURONTIN) 300 mg capsule Take 1 capsule (300 mg total) by mouth 3 (three) times a day. 90 each 1 5 Active traMADoL (ULTRAM) 50 mg tabletIndication s:Uncontrolled hypertension,Acu te left-sided low back pain without sciatica Take 0.5 tablets (25 mg total) by mouth 3 (three) times a day if needed for moderate pain. Max Daily Amount: 75 mg 15 tablet 5 Active hydroCHLOROthiaz shantla 12.5 mg tablet Take 1 tablet (12.5 mg total) by mouth 1 (one) time each day. 30 each 5 09/25/19 26 Active doxycycline (Vibramycin) 100 mg capsule Take 1 capsule (100 mg total) by mouth 2 (two) times a day for 10 days. 20 each 5 09/17/20 25 Active traMADoL (ULTRAM) 50 mg tabletIndication s:Acute left-sided low back pain without sciatica,Uncontr olled hypertension Take 0.5 tablets (25 mg total) by mouth 3 (three) times a day if needed for moderate pain. Max Daily Amount: 75 mg 45 tablet 5 08/26/20 25 Discontin ued(Reord er) Active Problems Problem Noted Date Diagnosed Date Diabetic foot infection 01/28/2025 Acute osteomyelitis of right foot 09/27/2024 Assessment & Plan (02/18/2025 11:17 AM EDT): Orders: XR Chest 2 Views; Future Acute osteomyelitis 10/18/2018 Overview (10/07/2024): 10/08/18 Right MPJ Foot biopsy- acute & chronic osteo Assessment & Plan (10/10/2024 10:23 PM EST): Orders: Basic metabolic panel; Future DM (diabetes mellitus), type 2 with renal compli cations 08/12/2018 Assessment & Plan (02/18/2025 11:17 AM EDT): Orders: POC glucose manually resulted Microalbuminuria 08/12/2018 Chronic osteomyelitis 08/09/2018 Overview (10/07/2024): 10/08/18 Right Lateral Foot biopsy Diabetic foot ulcers 08/09/2018 Overview (10/07/2024): Right foot, 09/26/18 s/p [...] (diabetes mellitus), type 2 with neurological complications 05/18/2017 Assessment & Plan (12/03/2024 5:04 PM [...] mellitus), type 2 with peripheral vascular complications 05/18/2017 Resolved Problems Problem Noted Date Diagnosed Date Resolved Date Pneumonia of right lung due to infectious organism, unspecified part of lung 02/09/202502/13 Encounters Date Type Department Care Team Description 09/07/2025 10:00 AM EST Office Visit Orthopedic Surgery [facility] [address] [phone] Jeremy Caamrena DPM Controlled type 2 diabetes mellitus with diabetic polyneuropathy, without long-term current use of insulin (CMS/HCC V24, CMS/HCC V28) (Primary Dx); Charcot's joint of foot, right; Ulcer of midfoot, right, with necrosis of muscle (CMS/HCC V24, CMS/HCC V28); Cellulitis of right ankle 09/02/2025 Telephone Adult Medicine [address] [phone] John Kumar MD 08/26/2025 8:45 AM EST Office Visit Adult Medicine [address] [phone] Michael Kinney NP Uncontrolled hypertension (Primary Dx); Acute left-sided low back pain without sciatica 08/26/2025 Telephone Adult Medicine [address] [phone] Michael Kinney NP 08/24/2025 11:15 AM EST Office Visit Orthopedic [facility] [address] [phone] Jeremy Camarena DPM Controlled type 2 diabetes mellitus with diabetic polyneuropathy, without long-term current use of insulin (CMS/HCC V24, CMS/HCC V28) (Primary Dx); Charcot's joint of foot, right; Ulcer of right heel, with fat layer exposed (CMS/HCC V24, CMS/HCC V28) 08/18/2025 Telephone Adult Medicine [address] [phone] John Kumar MD 08/11/[address] [phone] Michael Kinney NP 08/10/2025 10:30 AM EST Office Visit Orthopedic [facility] [address] [phone] Jeremy Camarena DPM Controlled type 2 diabetes mellitus with diabetic polyneuropathy, without long-term current use of insulin (CMS/HCC V24, CMS/HCC V28) (Primary Dx); Charcot's joint of foot, right; Ulcer of right heel, with fat layer exposed (CMS/HCC V24, CMS/HCC V28) 08/07/2025 Telephone Adult [address] [phone] John Kumar MD 08/03/[address] [phone] John Kumar MD 07/30/2025 3:15 PM EST Office Visit Orthopedic [facility] [address] [phone] Jeremy Camarena DPM Controlled type 2 diabetes mellitus with diabetic polyneuropathy, without long-term current use of insulin (CMS/HCC V24, CMS/HCC V28) (Primary Dx); Charcot's joint of foot, right; Ulcer of right heel, with fat layer exposed (CMS/HCC V24, CMS/HCC V28) 07/21/2025 10:30 AM EDT Office Visit Orthopedic [facility] [address] [phone] Garth Nelson MD Finger pain, left (Primary Dx) 07/20/2025 Telephone Adult [address] [phone] Michael Kinney NP 07/16/2025 9:45 AM EDT Office Visit Orthopedic [facility] [address] [phone] Jeremy Camarena DPM Controlled type 2 diabetes mellitus with diabetic polyneuropathy, without long-term current use of insulin (CMS/HCC V24, CMS/HCC V28) (Primary Dx); Charcot's joint of foot, right; Ulcer of right heel, with fat layer exposed (CMS/HCC V24, CMS/HCC V28) 07/15/2025 8:45 AM EDT Office Visit Adult [address] [phone] Michael Kinney NP Acute left-sided low back pain without sciatica (Primary Dx); Uncontrolled hypertension 07/15/2025 Telephone Adult [address] [phone] John Kumar MD 07/13/2025 Telephone Adult Medicine [address] [phone] John Kumar MD 07/06/2025 9:45 AM EDT Office Visit Orthopedic [facility] [address] [place] [phone] Jeremy Camarena DPM Controlled type 2 diabetes mellitus with diabetic polyneuropathy, without long-term current use of insulin (CMS/HCC V24, CMS/[facility] V28) (Primary Dx); Charcot's joint of foot, right; Ulcer of right heel, with fat layer exposed (CMS/HCC V24, CMS/HCC V28) 07/02/2025 Telephone Adult Medicine [address] [phone] John Kumar MD 06/30/2025 9:00 AM EDT Office Visit Orthopedic [facility] [address] [phone] Oscar Vences PA Other sprain of left ring finger, initial encounter (Primary Dx) 06/30/2025 Telephone Orthopedic Surgery [facility] [address] [phone] Angélica Solares 06/24/2025 2:30 PM EDT Office Visit Orthopedic [facility] [address] [phone] Jeremy Camarena, OBI Controlled type 2 diabetes mellitus with diabetic polyneuropathy, without long-term current use of insulin (CMS/HCC V24, CMS/HCC V28) (Primary Dx); Charcot's joint of foot, right; Ulcer of right heel, with fat layer exposed (CMS/HCC V24, CMS/HCC V28) 06/15/2025 11:00 AM EDT Office Visit Adult Medicine [address] [phone] Michael Kinney NP Neck pain (Primary Dx); Acute left-sided low back pain without sciatica; Uncontrolled hypertension; DM (diabetes mellitus), type 2 with neurological complications (CMS/HCC V24, CMS/HCC V28); Diabetic ulcer of right midfoot associated with type 2 diabetes mellitus, unspecified ulcer stage (CMS/HCC V24, CMS/HCC V28); Encounter for examination following treatment at hospital; Encounter for screening for malignant neoplasm of prostate 06/10/2025 1:26 PM EDT - 06/10/2025 9:[address] [facility] Emergency [address] [place] [phone] Gabino Blevins MD Neck pain on left side (Primary Dx); Upper back pain Discharge Disposition: Home or Self Care 06/10/2025 Telephone Adult Medicine [address] [phone] John Kumar MD from Last 3 Months Immunizations Immunization Administration Dates Next Due Influenza Quadravalent, MDCK , 0.5ml, preservative free (Flucelvax) 6mo and older 07/07/2022,07/07/2022 JNJ/Lavon SARS-CoV-2 COVID -19, vector-nr, rS-Ad26, preservative free 02/01/2021,02/01/2021 Surgical History Surgery Date Site/Laterality Comments CHOLECYSTECTOMY 04/17/2017 PROCEDURE: HISTORICAL CHOLECYSTECTOMY HERNIA REPAIR 04/17/2017 PROCEDURE: HISTORICAL HERNIA REPAIR/UMB OTHER SURGICAL HISTORY 04/14/2017 Right PROCEDURE: ME DEBRIDEMENT BONE 1ST 20 SQ CM/< Medical [...] mellitus), type 2 with peripheral vascular complications ([facility]/HCC V24, CMS/HCC V28) 05/18/2017 DX:DM (diabetes mellitus), type 2 with peripheral vascular complications (HCC) DM (diabetes mellitus), type 2 with neurological complications ([facility]/HCC V24, [facility] V28) 05/18/2017 DX:DM (diabetes mellitus), t [...] renal complications (HCC) Acute osteomyelitis (CMS/HCC V24, [facility]/HCC V28) 10/18/2018 DX:Acute osteomyelitis (HCC) ; COMMENT: 10/08/18 Right MPJ Foot biopsy- acute & chronic osteo Chronic osteomyelitis ([facility]/H CC V24, [facility]/HCC V28) 08/09/2018 DX:Chronic osteomyelitis (HC C); COMMENT: 10/08/18 Right Lateral Foot biopsy Diabetic foot ulcers ([facility]/HC C V24, [facility]/HCC V28) 08/09/2018 DX:Diabetic foot ulcers (HCC ); [...] 0 Q uit: 09/24/1996 Smokeless Tobacco: Never Tobacco Cessation:Counseling Given: Not Answered Alcohol Use Standard Drinks/Week Comments No 0 [...] for your loved ones. For example, child and adolescent psychologist or elderly care for an older adult? [...] on file Sexual Orientation Not on file Last Filed Vital Signs Vital Sign Reading Time Taken Comments Blood Pressure 148/78 08/26/2025 9:36 AM EST Pulse 104 08/26/2025 9:00 AM EST Temperature 36.2 C (97.1 F) 08/26/2025 9:00 AM EST Respiratory Rate 16 06/15/2025 11:12 AM EDT Oxygen Saturation 95% 08/26/2025 9:00 AM EST Inhaled Oxygen Concentration - - Weight 105 kg (232 lb) 08/26/2025 9:00 AM EST Height 180.3 cm (5' 11 ) 08/26/2025 9:00 AM EST Body Mass Index 32.36 08/26/2025 9:00 AM EST Plan of Treatment Upcoming Encounters Date Type Department Care Team (Late st Contact Info) Description 09/15/2025 10:30 AM EST Office Visit Adult Medicine [facility] [address] [place] [phone] Kyaw Potter PA [address] [place] [address] 09/21/2025 1:30 PM EST Office Visit Orthopedic Surgery - [place] [phone] [phone] Jeremy Camarena, OBI [address] [phone] 09/30/2025 2:00 PM EST Office Visit Adult Medicine [facility] [address] [place], [place] [phone] Michael Kinney NP [address], [place] Health Maintenance Due Date Last Done [...] Annual Urine Albumin-Creatinine Ratio (uACR) 05/30/2024 05/30/2023 COVID-19 Vaccine ( season) 2025 07/21/2021, 02/01/2021, 02/01/2021 Influenza Vaccine (#1) 2025 07/07/2022, 2021 Diabetes: Blood Sugar Control Test (HGBA1C) 08/04/2025 02/01/2025, 09/27/2024, 05/28/2024 Diabetes: Annual Foot Exam 01/28/202601/28, 09/27/2024, 05/28/2024 Colorectal Cancer Screening: Stool Based Tests (FOBT/FIT) 02/03/2026 02/03/2025 Diabetes: Annual GFR (Glomerular Filtration Rate) 06/10/2026 06/10/2025, 02/13/2025, 02/12/2025, Additional history exists Hypertension/CHF/CAD Annual BMP Blood Test 06/10/2026 06/10/2025, 02/13/2025, 02/12/2025, Additional history exists Social Influencers of Health Screening 08/26/2026 08/26/2025 Cholesterol Screening (Lipid Panel) 05/28/2029 05/28/2024, 05/28/2024 Depression Screening Completed 08/26/2025 HIB Vaccines Aged Out No longer eligi [...] Procedure Name Priority Date/Time Associated Diagnosis Comments EXTERNAL XRAY REPORT 08/11/2025 EXTERNAL XRAY REPORT 08/11/2025 XR FINGERS 2+ VIEWS LEFT Routine 07/21/2025 [...] AND DIFFERENTIAL STAT 06/10/2025 1:47 PM EDT OCCULT BLOOD STOOL, GUAIAC Routine 02/03/2025 4:51 PM EDT HEMOGLOBIN A1C Add-On 02/01/2025 6:21 AM EDT LIPID PANEL Routine 05/28/2024 HM DIABETES FOOT EXAM Routine 05/28/2024 HM URINE ALBUMIN CREATININE RATIO Routine 05/30/2023 from Last 3 Months or Most Recently Relevant to Health Maintenance Results * External Xray Report (08/11/2025) Only the most recent of2 resultswithin the time period is included. Anatomical Region Laterality Modality Radiographic Kassandra ging Provider [facility] XR PROCEDURES Final Result * XR Fingers 2+ Views Left (07/21/2025 [...] MD on 06/10/2025 19:38:00 Gabino Blevins MD [facility] [place]ED[place] Final Result * ECG 12 lead (06/10/2025 2:12 PM EDT) Ventricular Rate ECG 115 BPM GEMUSE Atrial Rate 115 BPM GEMUSE P-R Interval 140 ms GEMUSE QRS Duration 80 ms GEMUSE Q-T Interval 334 ms GEMUSE QTc 462 ms GEMUSE P Wave [place] 38 degrees GEMUSE R [place] 19 degrees GEMUSE T [place] 39 degrees GEMUSE ECG Interpretation Sinus tachycardia Otherwise normal ECG When compared with ECG of 09-FEB-2025 14:49, No significant change was found Confirmed by MD PARTIDA JOHN ([id number]) on 06/10/2025 5:35:28 PM GEMUSE 06/10/2025 2:12 PM EDT 06/10/2025 5:35 PM EDT Gabino Blevins MD ECG ORDERABLES Final Re sult Performing Organization Address [facility]/ZIP Co de Phone Number [email or web address] * (ABNORMAL) D-dimer, quantitative (06/10/2025 1:48 PM EDT) Pathologist [facility] D-Dimer, Quant (D-DU) 397(H) <=230 ng/mL DDU LAB COAGULATION METHOD 06/10/2025 2:55 PM EDT [facility] Blood Venous blood specimen / Unknown Venipuncture / Unknown 06/10/2025 1:48 PM EDT 06/10/2025 2:38 PM EDT Narrative [facility] - 06/10/2025 2:55 PM EDT D-Dimer <230 ng/mL (D-Dimer units) is the threshold for exclusion of DVT/PE. D-Dimer may be elevated in: Critically ill, severely infected, trauma patients, DIC, acute CVA, acute NM, unstable angina, AF, old age, , and smoking. D-Dimer may be decreased with: Initiation of heparin therapy and oral anticoagulants. Gabino Blevins MD LAB BLOOD ORDERABLES Fin al Result Performing Organization Address [facility] Co de Phone Number [facility] [address] [place] [address], [place] [phone] * Troponin I high sensitivity (06/10/2025 1:47 PM EDT) [facility] High Sensitivity Troponin I 12 <=79 ng/L LAB CHEMISTRY METHOD 06/10/2025 3:10 PM EDT [facility] Blood Venous blood specimen / Unknown Venipuncture / Unknown 06/10/2025 1:47 PM EDT 06/10/2025 2:38 PM EDT Narrative [facility] - 06/10/2025 3:10 PM EDT High levels of biotin in samples may falsely decrease hsTroponin values. Use caution when interpreting hsTroponin results in patients taking biotin who exhibit renal impairment (eGFR <60) or in patients taking more than 20 mg/day of biotin. Gabino Blevins MD LAB BLOOD ORDERABLES Fin al Result [facility] [address] [place] [address], * (ABNORMAL) CBC auto differential (06/10/2025 1:47 PM EDT) WBC 6.8 4.8 - 10.8 K/mcL LAB HEMETOLOGY METHOD 06/10/2025 3:25 PM EDT [facility] RBC 3.70(L) 4.50 - 5.50 M/mcL LAB HEMETOLOGY METHOD 06/10/2025 3:25 PM EDT [facility] Hemoglobin 12.9(L) 13.5 - 17.5 g/dL LAB HEMETOLOGY METHOD 06/10/2025 3:25 PM EDT [facility] Hematocrit 34.5(L) 42.0 - 54.0 % LAB HEMETOLOGY METHOD 06/10/2025 3:25 PM EDT [facility] MCV 92.5 79.0 - 98.0 FL LAB HEMETOLOGY METHOD 06/10/2025 3:25 PM EDT [facility] MCH 34.6(H) 27.0 - 32.0 pcg LAB HEMETOLOGY METHOD 06/10/2025 3:25 PM EDT [facility] MCHC 37.4(H) 32.0 - 37.0 g/dL LAB HEMETOLOGY METHOD 06/10/2025 3:25 PM EDT [facility] RDW 14.4 11.0 - 15.0 % LAB HEMETOLOGY METHOD 06/10/2025 3:25 PM EDT [facility] Platelets 181 130 - 400 K/mcL LAB HEMETOLOGY METHOD 06/10/2025 3:25 PM EDT [facility] MPV 9.3 7.0 - 11.0 FL LAB HEMETOLOGY METHOD 06/10/2025 3:25 PM EDT [facility] NRBC 0.0 <1.0 % LAB HEMETOLOGY METHOD 06/10/2025 3:25 PM EDT [facility] NRBC Absolute 0.00 <0.10 K/mcL LAB HEMETOLOGY METHOD 06/10/2025 3:25 PM EDT [facility] Neutrophils Relative 80.5 % LAB HEMETOLOGY METHOD 06/10/2025 3:25 PM EDT [facility] Lymphocytes Relative 11.1 % LAB HEMETOLOGY METHOD 06/10/2025 3:25 PM EDT [facility] Monocytes Relative 7.1 % LAB HEMETOLOGY METHOD 06/10/2025 3:25 PM EDT [facility] Eosinophils Relative 0.3 % LAB HEMETOLOGY METHOD 06/10/2025 3:25 PM EDT [facility] Basophils Relative 0.6 % LAB HEMETOLOGY METHOD 06/10/2025 3:25 PM EDT [facility] Immature Granulocytes Relative 0.4 % LAB HEMETOLOGY METHOD 06/10/2025 3:25 PM EDT [facility] Neutrophils Absolute 5.45 1.50 - 7.00 K/mcL LAB HEMETOLOGY METHOD 06/10/2025 3:25 PM EDT [facility] Lymphocytes Absolute 0.75(L) 1.00 - 5.00 K/mcL LAB HEMETOLOGY METHOD 06/10/2025 3:25 PM EDT [facility] Monocytes Absolute 0.48 0.20 - 1.00 K/mcL LAB HEMETOLOGY METHOD 06/10/2025 3:25 PM EDT [facility] Eosinophils Absolute 0.02 0.00 - 0.50 K/mcL LAB HEMETOLOGY METHOD 06/10/2025 3:25 PM EDT [facility] Basophils Absolute 0.04 0.00 - 0.20 K/mcL LAB HEMETOLOGY METHOD 06/10/2025 3:25 PM EDT [facility] Immature Granulocytes Absolute 0.03 0.00 - 0.03 K/mcL LAB HEMETOLOGY METHOD 06/10/2025 3:25 PM EDT [facility] Blood Venous blood specimen / Unknown Venipuncture / Unknown 06/10/2025 1:47 PM EDT 06/10/2025 2:38 PM EDT Gabino Blevins MD LAB BLOOD ORDERABLES Fin al Result [facility] [address] [place] [address], [place] [phone] * Magnesium (06/10/2025 1:47 PM EDT) Magnesium 2.1 1.9 - 2.6 mg/dL LAB CHEMISTRY METHOD 06/10/2025 3:05 PM EDT [facility] Blood Venous blood specimen / Unknown Venipuncture / Unknown 06/10/2025 1:47 PM EDT 06/10/2025 2:38 PM EDT Gabino Blevins MD LAB BLOOD ORDERABLES Fin al Result Performing Organization Address City/[facility]/ZIP Co de Phone Number [facility] [address], [place] [address] [phone] * (ABNORMAL) Comprehensive metabolic panel (06/10/2025 1:47 PM EDT) [facility] Signature Sodium 137 133 - 145 mmol/L LAB CHEMISTRY METHOD 06/10/2025 3:42 PM [facility] Potassium 4.7 3.5 - 5.5 mmol/L LAB CHEMISTRY METHOD 06/10/2025 3:42 PM [facility] Chloride 100 96 - 110 mmol/L LAB CHEMISTRY METHOD 06/10/2025 3:42 PM [facility] CO2 25 21 - 32 mmol/L LAB CHEMISTRY METHOD 06/10/2025 3:42 PM [facility] Anion Gap 12(H) 3 - 11 LAB CHEMISTRY METHOD 06/10/2025 3:42 PM [facility] Glucose 164(H) 70 - 100 mg/dL LAB CHEMISTRY METHOD 06/10/2025 3:42 PM [facility] BUN 29(H) 5 - 25 mg/dL LAB CHEMISTRY METHOD 06/10/2025 3:42 PM [facility] Creatinine 1.19 0.70 - 1.30 mg/dL LAB CHEMISTRY METHOD 06/10/2025 3:42 PM [facility] eGFR 73 >=60 mL/min/1. 73m2 LAB CHEMISTRY METHOD 06/10/2025 3:42 PM [facility] Comment:Calculation based on the Chronic Kidney Disease Epidemiology Collaboration (CKD-EPI) equation refit without adjustment for race. BUN/Creatinine Ratio 24.4 LAB CHEMISTRY METHOD 06/10/2025 3:42 PM [facility] Calcium 9.1 8.5 - 10.5 mg/dL LAB CHEMISTRY METHOD 06/10/2025 3:42 PM [facility] AST (SGOT) 65(H) 10 - 42 unit/L LAB CHEMISTRY METHOD 06/10/2025 3:42 PM [facility] Comment:Results verified by repeat testing ALT (SGPT) 81(H) 10 - 60 unit/L LAB CHEMISTRY METHOD 06/10/2025 3:42 PM EDT [facility] Comment:Results verified by repeat testing Alkaline Phosphatase 76 42 - 121 unit/L LAB CHEMISTRY METHOD 06/10/2025 3:42 PM EDT [facility] Total Protein 7.3 6.0 - 8.0 g/dL LAB CHEMISTRY METHOD 06/10/2025 3:42 PM EDT [facility] Albumin 3.4 3.2 - 5.0 g/dL LAB CHEMISTRY METHOD 06/10/2025 3:42 PM EDT [facility] Total Bilirubin 3.0(H) 0.0 - 1.4 mg/dL LAB CHEMISTRY METHOD 06/10/2025 3:42 PM EDT [facility] Blood Venous blood specimen / Unknown Venipuncture / Unknown 06/10/2025 1:47 PM EDT 06/10/2025 2:38 PM EDT Gabino Blevins MD LAB BLOOD ORDERABLES Fin al Result Performing Organization Address City/[facility]/ZIP Co de Phone Number [facility] [address] [place] [address], * Occult blood stool, guaiac (02/03/2025 4:51 PM EDT) Occult Blood, Stool #1 Negative Negative 02/03/2025 5:56 PM EDT [facility] Stool Rectum structure / Unknown Non-blood Collection / Unknown 02/03/2025 4:51 PM EDT 02/03/2025 5:14 PM EDT Carolin MORIN LAB BODY FLUIDS AND STOOLS ORDERABLES Final Result [facility] [address] [place] [address], [place] [phone] * (ABNORMAL) Hemoglobin A1c (02/01/2025 6:21 AM EDT) [facility] Hemoglobin A1C 6.8(H) <6.5 % LAB CHEMISTRY METHOD 02/02/2025 10:17 PM EDT [facility] Mean Bld Glu Estim. 148 mg/dL LAB CHEMISTRY METHOD 02/02/2025 10:17 PM EDT [facility] Blood Venous blood specimen / Unknown Venipuncture / Unknown 02/01/2025 6:21 AM EDT 02/01/2025 7:43 AM EDT Carolin MORIN LAB BLOOD ORDERABLES Final Result [facility] [address] [place] [address], [place] [phone] * Diabetes Foot Exam (05/28/2024) [facility] Diabetes: Annual Foot Exam abstracted Historical Provider HEALTH MAINTENANCE Final Result * (ABNORMAL) Lipid panel (05/28/2024) [facility] LDL/HDL Ratio 3 0 - 4 Triglycerides 243(A) 0 - 150 mg/dL Cholesterol 168 0 - 200 mg/dL HDL 52 >=40 mg/dL LDL Cholesterol 68 0 - 100 mg/dL Blood Venous blood specimen / Unknown Historical Provider LAB BLOOD ORDERABLES Ce l Result * Urine Albumin Creatinine Ratio (05/30/2023) [facility] Urine Albumin Creatinine Ratio abstracted Historical Provider HEALTH MAINTENANCE Final Result from Last 3 Months or Most Recently Relevant to Health Maintenance Additional Health Concerns Infection Onset Date Last Indicated Human Metapneumovirus 02/09/2025 02/09/2025 Insurance [place]ICA[place] - [place] MEDICARE Advance Directives Documents on File Type Date Recorded 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
== END 2025-09-07 18:37 | disposition home or self-care (01) ==
LOC: HO.MRI 18:36
PROVIDERS: PCP Internal Medicine; Visit Provider Registered Nurse Emergency
DX: M51.369 Other intervertebral disc degeneration, lumbar region without mention of lumbar back pain or lower extremity pain (principal); M53.3 Sacrococcygeal disorders, not elsewhere classified; G89.4 Chronic pain syndrome
CPT/HCPCS: 72148

== ENCOUNTER → 2025-09-07 18:36 | Outpatient (BNV) | payer MEDICARE, MEDICAID, SELFPAY | PROVIDERS: PCP Internal Medicine; Visit Provider Radiology Diagnostic Radiology | DX: M47.816 Spondylosis without myelopathy or radiculopathy, lumbar region (principal) | CPT/HCPCS: 72148 ==